=== PATIENT | female | born 1970 | race African-American/Black ===

== ENCOUNTER 2016-09-04 22:31 | Emergency (ER) | payer BC, OTHER ==
[~2016-09-04] VITALS: Ht 167.6 cm; Wt 65.3 kg
[~2016-09-04 22:31] MED LIST: BIRTH CONTROL PO; FEXO-104 PO; FLUR100T PO; GUAIFENESIN PO; HYOS0.1217 PO; LORA10TA2 PO; NAPROXEN PO; PANT40SU PO
--- NOTE | 2016-09-04 23:00 | ED General ---
General Chief Complaint: Cardiac/General Problems Stated Complaint: LT LEG PAIN,HEAD PAIN,ELEVATED BP Nursing Triage Note: Pt to ED after calling her insurance phone a nurse line. Pt has elevated BP and a headche. Pain in lower leg lateral calf region since 1800. Pt is on Naproxen for menstrual cramps. Nursing Sepsis Screen: No Definite Risk Source of Information: Patient, Family Exam Limitations: No Limitations History of Present Illness Time Seen by Provider: 22:37 Initial Comments Here with report of elevated blood pressure home with headache and pain in her left lower leg. Pain is been going on since about 6 p.m. tonight. She did take a pain pill which did not help. Denies chest pain or breathing problems. Has history of high blood pressure but takes only 5 mg lisinopril. Denies nausea or vomiting. Timing/Duration: 4-6 Hours Severity: Moderate Modifying Factors: worse with Medication Associated Systoms: No Chest Pain, No Cough, No Fever/Chills, HeadachesNo Nausea/Vomiting, No Shortness of Air, No Weakness Allergies and Home Medications Allergies Coded Allergies: Azithromycin (Unverified Allergy, 01/25/10) Methylprednisolone (Unverified Allergy, 01/25/10) Home Medications PO DAILY (Reported) PO PRN (Reported) 500 MG PO PRN (Reported) Fexofenadine Hcl 180 Mg Tablet 180 MG PO DAILY (Reported) Flurbiprofen 100 Mg Tablet 100 MG PO PRN (Reported) Hyoscyamine Sulfate 0.125 Mg/Tab Tab.rapdis 1 EACH PO BID (Reported) Loratadine 10 Mg Tablet 10 MG PO PRN (Reported) Pantoprazole Sodium 40 Mg Suspdr.pkt 40 MG PO DAILY (Reported) Constitutional: see HPINo chills, No fever EENTM: no symptoms reported Respiratory: no symptoms reported Cardiovascular: see HPI edema (left lower extremity mild) palpitations Gastrointestinal: no symptoms reported Genitourinary: no symptoms reported Musculoskeletal: see HPI muscle pain Skin: no symptoms reported Psychiatric/Neurological: See HPI Headache (global)Denies Pre-Existing Deficit All Other Systems Reviewed Negative Unless Noted: Yes Past Ruokhpt-Snfijv-Sjykgc Hx Patient Social History Alcohol Use: Denies Use Recreational Drug Use: No Smoking Status: Never a Smoker Recent Foreign Travel: No Contact w/Someone Who Travel: No Recent Infectious Disease Expo: No Recent Hopitalizations: No Physical Abuse Screen: No Sexual Abuse: No Immunizations Up To Date Date of Influenza Vaccine: May 25, 2017 Seasonal Allergies Seasonal Allergies: No Surgeries HX Surgeries: Yes (CYST FROM CHIN) Respiratory Hx Respiratory Disorders: No Cardiovascular Hx Cardiac Disorders: Yes Cardiac Disorders: Hypertension Neurological Hx Neurological Disorders: No Reproductive System : No Hx Reproductive Disorders: No Sexually Transmitted Disease: No Genitourinary Hx Genitourinary Disorders: No Gastrointestinal Hx Gastrointestinal Disorders: Yes Gastrointestinal Disorders: Gastroesophageal Reflux Musculoskeletal Hx Musculoskeletal Disorders: No Endocrine Hx Endocrine Disorders: No HEENT HX ENT Disorders: Yes (tmj) Cancer Hx Cancer: No Psychosocial Hx Psychiatric Problems: No Integumentary HX Skin/Integumentary Disorder: No Blood Transfusions Hx Blood Disorders: No Reviewed Nursing Assessment Reviewed/Agree w Nursing PMH: Yes Family Medical History Significant Family History: No Pertinent Family Hx Physical Exam Vital Signs Vital Sign - Last 12Hours 09/04/16 22:38 Temp 97.1 Pulse 77 Resp 18 B/P 176/134 Pulse Ox 100 O2 Delivery Room Air Capillary Refill : Less Than 3 Seconds General Appearance: No Apparent Distress WD/WN HEENT: PERRL/EOMI Pharynx Normal Neck: Non Tender Supple Respiratory: Lungs Clear Normal Breath Sounds Cardiovascular: Regular Rate, Rhythm No Murmur Gastrointestinal: Non Tender Soft Back: Normal Inspection No CVA Tenderness No Vertebral Tenderness Extremity: Normal Range of Motion Non Tender Pedal Edema (1+ edema/swelling to the left lower extremity versus right.) Neurologic/Psychiatric: Alert Oriented x3 No Motor/Sensory Deficits Skin: Normal Color Warm/Dry Progress/Results/Core Measures Results/Orders Lab Results Laboratory Tests Test 09/04/16 23:30 Range/Units Alanine Aminotransferase (ALT/SGPT) 16 0-55 U/L Albumin 3.9 3.2-4.5 G/DL Alkaline Phosphatase 65 40-136 U/L Anion Gap 9 5-14 MMOL/L Aspartate Amino Transf (AST/SGOT) 25 5-34 U/L BUN/Creatinine Ratio 16 Basophils # (Auto) 0.0 0.0-0.1 10^3/uL Basophils (%) (Auto) 0 0-10 % Blood Urea Nitrogen 13 7-18 MG/DL Calcium Level 8.5 8.5-10.1 MG/DL Carbon Dioxide Level 21 21-32 MMOL/L Chloride Level 110 H 98-107 MMOL/L Creatinine 0.83 0.60-1.30 MG/DL D-Dimer 0.57 H 0.00-0.49 UG/ML Eosinophils # (Auto) 0.1 0.0-0.3 10^3/uL Eosinophils (%) (Auto) 2 0-10 % Estimat Glomerular Filtration Rate > 60 Glucose Level 101 70-105 MG/DL Hematocrit 32 L 35-52 % Hemoglobin 9.9 L 11.5-16.0 G/DL Lymphocytes # (Auto) 1.3 1.0-4.0 X 10^3 Lymphocytes (%) (Auto) 50 H 12-44 % Magnesium Level 2.1 1.8-2.4 MG/DL Mean Corpuscular Hemoglobin 25 25-34 PG Mean Corpuscular Hemoglobin Concent 31 L 32-36 G/DL Mean Corpuscular Volume 79 L 80-99 FL Mean Platelet Volume 9.6 7.4-10.4 FL Monocytes # (Auto) 0.3 0.0-1.0 X 10^3 Monocytes (%) (Auto) 13 H 0-12 % Neutrophils # (Auto) 0.9 L 1.8-7.8 X 10^3 Neutrophils (%) (Auto) 35 L 42-75 % Platelet Count 227 130-400 10^3/uL Potassium Level 3.7 3.6-5.0 MMOL/L Red Blood Count 3.99 L 4.35-5.85 10^6/uL Red Cell Distribution Width 16.4 H 10.0-14.5 % Serum Test, Qualitative NEGATIVE NEGATIVE Sodium Level 140 135-145 MMOL/L Total Bilirubin 0.2 0.1-1.0 MG/DL Total Protein 7.7 6.4-8.2 G/DL Troponin I < 0.30 <0.30 NG/ML White Blood Count 2.6 L 4.3-11.0 10^3/uL My Orders Orders-RA FINCH MD Cbc With Automated Diff (09/04/16 22:46) Comprehensive Metabolic Panel (09/04/16 22:46) Fibrin Degradation Products (09/04/16 22:46) Magnesium (09/04/16 22:46) Troponin I (09/04/16 22:46) Chest Pa/Lat (2 View) (09/04/16 22:46) Saline Lock/Iv-Start (09/04/16 22:46) Ekg Tracing (09/04/16 22:46) Monitor-Rhythm Ecg Trace Only (09/04/16 22:46) Metoprolol Succinate (Xl) Tab (Toprol Xl (09/04/16 23:00) Us Venous Lower Ext Lt (09/05/16 00:04) Hcg,Qualitative Serum (09/05/16 00:15) Ketorolac Injection (Toradol Injection) (09/05/16 00:22) Ct Head Wo (09/05/16 00:40) Fentanyl Injection (Sublimaze Injection (09/05/16 01:34) Dexamethasone Pf Injection (Decadron Pf (09/05/16 01:34) Medications Given in ED Current Medications Medications Dose Ordered Sig/Abby Route Start Time Stop Time Status Last Admin Dose Admin Metoprolol Succinate 50 mg ONCE ONCE PO 09/04/16 23:00 09/04/16 23:03 DC 09/04/16 23:28 50 MG Vital Signs/I&O Vital Sign - Last 12Hours 09/04/16 09/05/16 09/05/16 22:38 00:26 01:40 Temp 97.1 97.1 97.1 Pulse 77 Resp 18 B/P 176/134 Pulse Ox 100 O2 Delivery Room Air Blood Pressure Mean: 148 Progress Note : Progress Note Seen and evaluated. IV, labs, EKG and chest x-ray ordered. Monitor patient. Metoprolol xl 50 mg by mouth given. Ultrasound left lower extremity ordered due to elevated d-dimer. Abnormal blood counts discussed with patient and family. CT head ordered due to persistent headache. Toradol 30 mg IV ordered. Monitor patient. 0200: Fentanyl 25 g IV and Decadron 10 mg IV for headache. Monitor patient. 0250: Pain resolved and patient feels much better. Blood pressure 142/92. No acute findings other than blood counts. Consideration of vitamin with iron discussed that she will talk with her primary care doctor in the morning. Discharged home with return precautions. Patient verbalize understanding instructions and agreement with plan. ECG Initial ECG Impression Date: Sep 04, 2016 Initial ECG Impression Time: 22:49 Initial ECG Rate: 68 Initial ECG Rhythm: Normal Sinus Initial ECG Intervals: Normal Comment Sinus rhythm with left axis deviation. No evidence of ST elevation CT. No previous available for comparison. Interpreted by me. Diagnostic Imaging Diagonstic Imaging: Xray Plain Films/CT/US/NM/MRI: chest Comments No acute findings Reviewed: Reviewed by Me Diagonstic Imaging: CT Plain Films/CT/US/NM/MRI: head Comments No acute intracranial hemorrhage, mass effect, midline shift, herniation or hydrocephalus. Visualized paranasal sinuses and mastoid air cells are clear. Reviewed: Reviewed [place] Study Diagonstic Imaging: Ultrasound Plain Films/CT/US/NM/MRI: leg Comments No evidence of DVT. Reviewed: Reviewed [place] Study Departure Impression Impression: Primary Impression: Hypertension Qualified Code: I10 - Essential (primary) hypertension Additional Impressions: Anemia Qualified Code: D64.9 - Anemia, unspecified Headache Qualified Code: R51 - Headache Disposition: 01 HOME, SELF-CARE Condition: Improved Departure-Patient Inst. Decision time for Depature: 02:56 Referrals: NO,LOCAL PHYSICIAN (PCP/Family) Primary Care Physician Patient Instructions: Anemia Caused by Low Iron, Adult (DC), Headache, Adult ( DC), High Blood Pressure in Adults Add. Discharge Instructions: All discharge instructions reviewed with patient and/or family. Voiced understanding. You need to call your doctor this morning and discuss lab results and low blood counts. Also discuss your blood pressure. You were given metoprolol XL 50 mg here which did help her blood pressure. It would be reasonable to double your lisinopril to 10 mg daily if blood pressure is not controlled. You can discussed this with your doctor as well. Return for worsening, fever, vomiting , weakness, breathing problems or other concerns as needed. RA FINCH MD Sep 04, 2016 23:00
[2016-09-04 23:41] LABS: BASOPHILS % (AUTO) 0 % (0-10); EOSINOPHILS # (AUTO) 0.1 10^3/uL (0.0-0.3); EOSINOPHILS % (AUTO) 2 % (0-10); LYMPHOCYTES # (AUTO) 1.3 X 10^3 (1.0-4.0); LYMPHOCYTES % (AUTO) 50 % (12-44); MEAN CORPUSCULAR HEMOGLOBIN 25 PG (25-34); MEAN CORPUSCULAR HGB CONC 31 G/DL (32-36); MEAN CORPUSCULAR VOLUME 79 FL (80-99); MEAN PLATELET VOLUME 9.6 FL (7.4-10.4); MONOCYTES # (AUTO) 0.3 X 10^3 (0.0-1.0); MONOCYTES % (AUTO) 13 % (0-12); NEUTROPHILS # (AUTO) 0.9 X 10^3 (1.8-7.8); NEUTROPHILS % (AUTO) 35 % (42-75); PLATELET COUNT 227 10^3/uL (130-400); RED BLOOD COUNT 3.99 10^6/uL (4.35-5.85); RED CELL DISTRIBUTION WIDTH 16.4 % (10.0-14.5); WHITE BLOOD COUNT 2.6 10^3/uL (4.3-11.0)
[2016-09-04 23:59] LABS: ALANINE AMINOTRANSFERASE 16 U/L (0-55); ALBUMIN 3.9 G/DL (3.2-4.5); ANION GAP 9 MMOL/L (5-14); ASPARTATE AMINO TRANSFERASE 25 U/L (5-34); BILIRUBIN,TOTAL 0.2 MG/DL (0.1-1.0); BLOOD UREA NITROGEN 13 MG/DL (7-18); BUN/CREATININE RATIO 16; CALCIUM 8.5 MG/DL (8.5-10.1); CARBON DIOXIDE 21 MMOL/L (21-32); CHLORIDE 110 MMOL/L (98-107); CREATININE SERUM 0.83 MG/DL (0.60-1.30); GFR ESTIMATED > 60; GLUCOSE 101 MG/DL (70-105); MAGNESIUM 2.1 MG/DL (1.8-2.4); POTASSIUM 3.7 MMOL/L (3.6-5.0); SODIUM 140 MMOL/L (135-145); TOTAL PROTEIN 7.7 G/DL (6.4-8.2)
[2016-09-05 00:05] LABS: TROPONIN I < 0.30 NG/ML (<0.30)
[2016-09-05] MEDS ORDERED: KETOROLAC 30 MG/ML VIAL IVP STA (00:22)
[2016-09-05] MEDS ORDERED: fentaNYL INJECTION 100 MCG/2 ML AMP IVP STA (01:34)
[2016-09-05] MEDS ORDERED: DEXAMETHASONE PF 10 MG/ML (DECADRON) VIAL IV STA (01:34)
[2016-09-05 03:12] VITALS: BP 142/92
[2016-09-05] MEDS ORDERED: FLUT9.9S NS (03:28)
[2016-09-05] MEDS ORDERED: LISI-556 PO (03:28)
--- NOTE | 2016-09-05 06:37 | Diagnostic Imaging Report ---
PROCEDURE: US left lower extremity venous. TECHNIQUE: Multiple real-time grayscale images were obtained over the left lower extremity in various projections. Additional duplex Doppler and color Doppler images were also obtained. INDICATION: Left leg pain. EXAMINATION: Grayscale and color Doppler evaluation of the deep veins of the left lower extremity were performed with waveform analysis. FINDINGS: Continuous venous flow is present. No intraluminal filling defect is identified. There is normal compressibility and response to augmentation. No abnormal perivascular fluid collection is identified. IMPRESSION: No ultrasound evidence of left lower extremity deep venous thrombosis. Dictated by: Dictated on workstation # [id number]
--- NOTE | 2016-09-05 06:38 | Diagnostic Imaging Report ---
PROCEDURE: CT head without contrast. TECHNIQUE: Multiple contiguous axial images were obtained through the brain without the use of intravenous contrast. INDICATION: Headache. CT HEAD: Multiple contiguous axial CT images of the head were obtained. FINDINGS: Ventricles and sulci are within normal limits for size. There is no intracranial hemorrhage identified. There is no abnormal mass effect or shift of midline structures. IMPRESSION: Unremarkable CT of the head. Dictated by: Dictated on workstation # [id number]
--- NOTE | 2016-09-05 06:39 | Diagnostic Imaging Report ---
INDICATION: Headache with leg pain. PA and lateral views of the chest are obtained. COMPARISON: No previous study is available for comparison at this time. FINDINGS: Heart size and pulmonary vasculature are within normal limits, and the lungs are clear, bilaterally. IMPRESSION: Unremarkable chest. Dictated by: Dictated on workstation # [id number]
== END 2016-09-05 03:12 | disposition home or self-care (01) ==
LOC: EDUNIT# 22:31 → ER 22:34
DX: I10 Essential (primary) hypertension (principal); D64.9 Anemia, unspecified; R51 Headache
CPT/HCPCS: 36415; 70450; 71020; 80053; 83735; 84484; 84703; 85025; 85379; 93005; 96374; 96375

== ENCOUNTER 2018-09-28 08:34 | Outpatient (CLI) | payer BC ==
[~2018-09-28] VITALS: Ht 167.6 cm; Wt 72.4 kg
[~2018-09-28 08:34] MED LIST changes: +FLUT9.9S NS; +LISI-556 PO
[2018-09-28] MEDS ORDERED: NAPR-1070 PO (08:53)
[2018-09-28] MEDS ORDERED: HYOS-20 PO (08:53)
[2018-09-28] MEDS ORDERED: LIFI1DRO OP (08:53)
[2018-09-28] MEDS ORDERED: LORA10TA7 PO (08:53)
[2018-09-28] MEDS ORDERED: PANT40TA3 PO (08:53)
[2018-09-28] MEDS ORDERED: FLUR100T2 PO (08:53)
[2018-09-28] MEDS ORDERED: ESTR1TAB24 PO (08:59)
[2018-09-28] MEDS ORDERED: NF-SKEL800 PO (08:59)
[2018-09-28] MEDS ORDERED: MEDR2.5T6 PO (08:59)
[2018-09-28] MEDS ORDERED: LISI10TA2 PO (08:59)
[2018-09-28 09:02] VITALS: BP 143/99
--- NOTE | 2018-09-28 09:49 | Diagnostic Imaging Report ---
INDICATION: PRE-OP. Menorrhagia. COMPARISON: 09/04/2016 FINDINGS: Frontal and lateral views of the chest demonstrate normal heart size and pulmonary vascularity. The lungs are clear. There are no signs of infiltrate, pleural effusions or pneumothoraces. The visualized osseous structures show no acute abnormalities. IMPRESSION: 1. No acute process. No signs of infiltrates, effusions or pneumothoraces. Dictated by: Dictated on workstation # [id number]
== END 2018-09-28 10:59 | disposition home or self-care (01) ==
LOC: PREOP 08:34
PROVIDERS: ATTEND Obstetrics & Gynecology
DX: Z01.818 Encounter for other preprocedural examination (principal)
CPT/HCPCS: 71046; 86850; 86900; 86901; 87081; 93005

== ENCOUNTER 2018-10-05 10:11 | Day surgery (SDC) | payer BC ==
[~2018-10-05] VITALS: Ht 167.6 cm; Wt 72.4 kg
[2018-10-05 10:11] VITALS: BP 147/92
[~2018-10-05 10:11] MED LIST changes: +ESTR1TAB24 PO; +FLUR100T2 PO; +HYOS-20 PO; +LIFI1DRO OP; +LISI10TA2 PO; +LORA10TA7 PO; +MEDR2.5T6 PO; +NAPR-1070 PO; +NF-SKEL800 PO; +PANT40TA3 PO
[2018-10-05] MEDS ORDERED: CLINDAMYCIN 900 MG/50 ML IVPB 50 ML IV ONE (10:15)
[2018-10-05] MEDS ORDERED: LEVOFLOXACIN 500 MG/100 ML IV 100 ML IV ONE (10:15)
[2018-10-05] MEDS ORDERED: LIDOCAINE/EPI 2% 1:100,00 (XYLOCAINE) 20 ML VIAL ONE (10:33)
[2018-10-05] MEDS ORDERED: ESTRADIOL VAGINAL CREAM 42.5 GM (ESTRACE) VG ONE (10:34)
[2018-10-05] MEDS ORDERED: CATHETER FLUSH 10 ML SYR IV PRN (11:00)
[2018-10-05] MEDS: LACTATED RINGERS 1,000 ML IV PRN ×3 (11:15→13:45)
[2018-10-05] MEDS ORDERED: fentaNYL INJECTION 100 MCG/2 ML AMP ONE (11:44)
[2018-10-05] MEDS ORDERED: MIDAZOLAM 2 MG/2 ML (VERSED) VIAL ONE (11:44)
[2018-10-05] MEDS ORDERED: ROCURONIUM 10 MG/ML 5 ML SYRINGE IV ONE (11:44)
[2018-10-05] MEDS ORDERED: LIDOCAINE PF 2% 5 ML (XYLOCAINE) VIAL ONE (11:44)
[2018-10-05] MEDS ORDERED: DEXAMETHASONE 10 MG/ML (DECADRON) 1 ML VIAL ONE (11:44)
[2018-10-05] MEDS ORDERED: ONDANSETRON 4 MG/2 ML (SDV) Z0FRAN ONE (11:44)
[2018-10-05] MEDS ORDERED: SEVOFLURANE (ULTANE) 15 ML INHAL SOLN ONE ×6 (11:44→12:49)
[2018-10-05] MEDS ORDERED: proPOfol 200 MG/20 ML (DIPRIVAN) VIAL IV ONE (11:44)
--- NOTE | 2018-10-05 13:44 | History & Physical-Surgical ---
HPO-Surgical History of Present Illness Chief Complaint: Heavy, painful vaginal bleeding. Has know uteine fibroids Diagnosis/Surgical Indication: MENORRHAGIA Procedure: TVH WITH BSO Date of Surgery: Oct 05, 2018 Weight (Pounds): 159 Weight (Ounces): 9.0 Height (Feet): 5 Height (Inches): 6.00 Allergies and Home Medications Allergies Coded Allergies: amoxicillin (Verified Allergy, Mild, LOOSE STOOLS, 09/28/18) azithromycin (Unverified Allergy, Mild, LOOSE STOOLS, 09/28/18) clavulanic acid (Verified Allergy, Mild, LOOSE STOOLS, 09/28/18) methylprednisolone (Unverified Allergy, Mild, RASH, 09/28/18) Home Medications Estradiol 1 Mg Tablet, 1 MG PO DAILY, (Reported) Flurbiprofen 100 Mg Tablet, 100 MG PO PRN, (Reported) Fluticasone Propionate 9.9 Ml [place].susp, 9.9 ML NS DAILY PRN, (Reported) Hyoscyamine Sulfate 0.125 Mg Tablet, 0.125 MG PO BID, (Reported) Lifitegrast 1 Each Droperette, 1 EACH OP BID PRN for DRY EYES, (Reported) Lisinopril 10 Mg Tablet, 10 MG PO DAILY, (Reported) Loratadine 10 Mg Tablet, 10 MG PO DAILY, (Reported) Medroxyprogesterone Acetate 2.5 Mg Tablet, 2.5 MG PO DAILY, (Reported) Metaxalone 800 Mg Tablet, 800 MG PO PRN, (Reported) Naproxen Sodium 550 Mg Tablet, 550 MG PO BID PRN for CRAMPS, (Reported) Pantoprazole Sodium 40 Mg Tablet.dr, 40 MG PO DAILY, (Reported) Patient Home Medication List Home Medication List Reviewed: Yes Past Kytyksh-Julwuf-Fvmbvu Hx Patient Social History Marrital Status: ( to Jasmyne) Number of Children: 1 Number of living children: 1 Employed/Student: employed Alcohol Use: Denies Use Recreational Drug Use: No Smoking Status: Never a Smoker 2nd Hand Smoke Exposure: No Recent Foreign Travel: No Contact w/other who traveled: No Recent Hopitalizations: No Recent Infectious Disease Expo: No Immunizations Up To Date Date of Influenza Vaccine: Jun 01, 2018 Seasonal Allergies Seasonal Allergies: Yes Surgeries Yes (CYST FROM CHIN, BONE MARROW ASPIRATION) Respiratory No Cardiovascular Yes Hypertension Neurological No Reproductive System Hx Reproductive Disorders: No Sexually Transmitted Disease: No HIV/AIDS: No Female Reproductive Disorders: Menstrual Problems, 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 Genitourinary No Gastrointestinal Yes Gastroesophageal Reflux, Chronic Constipation, Chronic Diarrhea, Irritable Bowel Musculoskeletal No Endocrine History of Endocrine Disorders: No HEENT History of HEENT Disorders: Yes (GLASSES) Loss of Vision: Bilateral Hearing Impairment: Denies Cancer No Psychosocial History of Psychiatric Problem: No Integumentary History of Skin or Integumenta: No Blood Transfusions History of Blood Disorders: Yes (HX ANEMIA) Adverse Reaction to a Blood Tr: No (N/A) Family Medical History Significant Family History: No Pertinent Family Hx Exam Vital Signs Vital Signs 10/05/18 10:11 Temp 98.6 Pulse 83 Resp 16 B/P (MAP) 147/92 (110) Pulse Ox 100 O2 Delivery Room Air Capillary Refill : Labs Laboratory Tests Test 10/05/18 10:20 Range/Units Urine Test NEGATIVE NEGATIVE General Appearance: Alert, Oriented X3, Cooperative, No Acute Distress HEENT: PERRLA, EOMI Respiratory: Clear to Auscultation, Normal Air Movement Cardiovascular: Regular Rate, No Murmurs Abdominal: Normal Bowel Sounds, No Tenderness Extremities: No Clubbing, No Cyanosis Skin: No Rashes Neuro: Normal Gait Psych/Mental Status: Mental Status NL Assessment/Plan Assessment and Plan Assessment: Menometrorrhagia 2. Dysmenorrhea 3. Uterine Fibroids Plan: Scheduled for a Total Vaginal Hysterectomy with Bilateral Salpingo- oophorectomy for today. Admission Diagnosis Admission Status: Observation REGGIE GUERRERO DO Oct 05, 2018 13:44
[2018-10-05] MEDS ORDERED: GLYCOPYRROLATE 0.2 MG/ML (ROBINUL) 2 ML VIAL ONE (13:49)
[2018-10-05] MEDS ORDERED: NEOSTIGMINE 1 MG/ML 5 ML SYRINGE ONE (13:49)
[2018-10-05] MEDS ORDERED: morphine INJ 10 MG/ML 1ML (SYR OR VIAL) ONE (13:53)
[2018-10-05] MEDS ORDERED: HYDROmorphone 2 MG/ML VIAL (DILAUDID) IV ONE (14:00)
[2018-10-05] MEDS ORDERED: ONDANSETRON 4 MG/2 ML (SDV) Z0FRAN IVP PRN (14:00)
[2018-10-05] MEDS ORDERED: morphine INJ 10 MG/ML 1ML (SYR OR VIAL) IVP ONE (14:00)
--- NOTE | 2018-10-05 14:01 | Operative Report ---
Operative Report Date of Procedure/Surgery Oct 05, 2018 Surgeon (s) REGGIE GUERRERO DO Washerette Machine Operator (s): None Post-Operative Diagnosis Menometrorrhagia Dysmenorrhea Uterine Fibroids Procedure Performed Total Vaginal Hysterectomy with Bilateral Salpingo-oophorectomy Description of Procedure Anesthesia Type: General Estimated blood loss (mL): 250 Specimen(s) collected/removed Uterus, Fallopian Tubes, Ovaries Packing: Vaginal packing with Estrogen Vaginal Cream applied Description of the Procedure After reviewing the procedure, risks and benefits, Informed Consent was obtained. Ms. Lagos was taken to the Operating Room with IV fluids running. Once in the OR, general anesthesia was administered without difficulty. She was placed in the dorsal lithotomy position, prepped and draped in the normal sterile fashion. A Carrera catheter was inserted without difficulty, the bladder was drained of all urinary contents prior to starting the procedure. A weighted speculum was introduced in the vaginal vault along with a Lor retractor. The anterior lip of the cervix was grasped with a single toothed tenaculum, then injected with approximately 20 ml of local anesthesia with Epinephrine. An incision was made around the the cervix and the anterior vesicovaginal tissue was dissected off. The vescioperitoneum was entered by blunt dissection, the Lor retractor was reintroduced at that time. The uterosacral ligament was clamped on both sides, cut, then suture ligated with 0- Vicryl--the needles were allowed to remain as a means to close the vaginal cuff at the end of the procedure. The ligaments attached to the uterus were serial cut, clamped and suture ligated with 0-Vicryl. Secondary to the size of the uterus (fibroids), several fibroids had to be shelled out of the pseudo-sac prior to delivery of the uterus. Once the uterus was delivered, the infundibulopelvic ligament was clamped and cut on both sides, with delivery of both fallopian tubes and ovaries. The ligament was suture ligated with 0-Vicryl , followed by a a free-tie of 0-Vicryl. The peritoneum was closed with 3-0 Vicryl in a purse string fashion. The vaginal cuff was closed with a 0-Vicryl. Hemostasis was noted throughout. The vaginal vault was packed with a vaginal packing moistened with Estrogen Vaginal Cream. Sponge, instruments, and needle counts were correct x 3. Ms. Lagos was taken to the recovery room in good and stable condition. Orders are to follow. Findings of the Procedure Enlarged uterus with two very large fibroids (both approximately 8 cm in diameter), and several small fibroids. Allergies and Home Medications Allergies Coded Allergies: amoxicillin (Verified Allergy, Mild, LOOSE STOOLS, 09/28/18) azithromycin (Unverified Allergy, Mild, LOOSE STOOLS, 09/28/18) clavulanic acid (Verified Allergy, Mild, LOOSE STOOLS, 09/28/18) methylprednisolone (Unverified Allergy, Mild, RASH, 09/28/18) Home Medications Estradiol 1 Mg Tablet, 1 MG PO DAILY, (Reported) Flurbiprofen 100 Mg Tablet, 100 MG PO PRN, (Reported) Fluticasone Propionate 9.9 Ml [place].susp, 9.9 ML NS DAILY PRN, (Reported) Hyoscyamine Sulfate 0.125 Mg Tablet, 0.125 MG PO BID, (Reported) Lifitegrast 1 Each [place], 1 EACH OP BID PRN for DRY EYES, (Reported) Lisinopril 10 Mg Tablet, 10 MG PO DAILY, (Reported) Loratadine 10 Mg Tablet, 10 MG PO DAILY, (Reported) Medroxyprogesterone Acetate 2.5 Mg Tablet, 2.5 MG PO DAILY, (Reported) Metaxalone 800 Mg Tablet, 800 MG PO PRN, (Reported) Naproxen Sodium 550 Mg Tablet, 550 MG PO BID PRN for CRAMPS, (Reported) Pantoprazole Sodium 40 Mg Tablet.dr, 40 MG PO DAILY, (Reported) Patient Home Medication List Home Medication List Reviewed: Yes REGGIE GUERRERO DO Oct 05, 2018 14:01
[2018-10-05] MEDS ORDERED: NS IV 1000 ML 1,000 ML IV SCH ×2 (14:02→14:06)
--- NOTE | 2018-10-05 14:04 | Anesthesia-General Post-Op ---
General Patient Condition Mental Status/LOC: Same as Preop Cardiovascular: Satisfactory Nausea/Vomiting: Absent Respiratory: Satisfactory Pain: Controlled Complications: Absent Post Op Complications Complications None Follow Up Care/Instructions Patient Instructions None needed. Anesthesia/Patient Condition Patient Condition Patient is doing well, no complaints, stable vital signs, no apparent adverse anesthesia problems. No complications reported per nursing. LISA LUA CRNA Oct 05, 2018 14:04
[2018-10-05] MEDS ORDERED: D5 LR IV SOLUTION 1,000 ML IV SCH (14:06)
[2018-10-05] MEDS ORDERED: HYDROmorphone 2 MG/ML VIAL (DILAUDID) ONE (14:14)
[2018-10-05] MEDS ORDERED: NALOXONE 0.4 MG/ML 1 ML (NARCAN) VIAL IV PRN ×3 (14:15)
[2018-10-05] MEDS ORDERED: fentaNYL INJECTION 1,000 MCG in NS (IVPB) 80 ML IV SCH (14:15)
[2018-10-05] MEDS ORDERED: METOCLOPRAMIDE INJ 10 MG/2 ML (REGLAN) IV PRN ×3 (14:15)
[2018-10-05] MEDS ORDERED: morphine INJ 10 MG/ML 1ML (SYR OR VIAL) IV PRN (14:15)
[2018-10-05] MEDS ORDERED: BENZOCAINE/MENTHOL (DERMOPLAST) 56 ML CAN TP PRN (14:15)
[2018-10-05] MEDS ORDERED: ONDANSETRON 4 MG/2 ML (SDV) Z0FRAN IV PRN ×4 (14:15)
[2018-10-05] MEDS ORDERED: diphenhydrAMINE 50 MG/ML INJ (BENADRYL) IV PRN ×3 (14:15)
--- NOTE | 2018-10-05 14:50 | NUR ---
pt to women services room 306 via bed from [facility]. pt drowsy and resting on LT side. skin color normal for race. resp unlabored. HRRR abd soft with positive bowel sounds. v pack in place. scant drainage noted on pad. fuentes cath to bedside drainage. pt oriented to person,place,time, and situation. reports pain level at 7 on 1/10 scale. moves all extremities on command. bed rails up times 4. IV infusing LR per gravity.
[2018-10-05 15:00] VITALS: BP 113/57
[2018-10-05] MEDS ORDERED: NS IV 1000 ML 1,000 ML ONE (15:01)
--- NOTE | 2018-10-05 15:10 | NUR ---
pain medication ordered from pharmacy,
--- NOTE | 2018-10-05 15:30 | NUR ---
IV converted to pump tubing and NS at 125ml/hr per order dr irwin.
[2018-10-05] MEDS ORDERED: morphine INJ 4 MG/ML 1 ML (VIAL/SYRINGE) IV PRN (16:00)
--- NOTE | 2018-10-05 16:00 | NUR ---
pt drowsy and continues to report pain level at 7 on 1/10 scale. awaiting pain medication from pharmacy
--- NOTE | 2018-10-05 16:20 | NUR ---
fentanyl 20 mcg loading dose per TIER LIFT OPERATOR pump to existing IV site. reviewed usage of TIER LIFT OPERATOR with pt and family. continues to rate pain level at 7.
--- NOTE | 2018-10-05 16:45 | NUR ---
pt reports decrease in pain level to 6 on 1/10 scale. frequently sleepy. s.o reports she is "more comfortable now"
--- NOTE | 2018-10-05 16:45 | NUR ---
dr irwin called and status reviewed. continuous 10 mcg rate per BLADE ALIGNER with 10mcg q10min PRN. 200 mcg 4 hour limit
[2018-10-05] MEDS ORDERED: LORazepam INJ 2 MG/ML (ATIVAN) VIAL IVP NR (17:00)
--- NOTE | 2018-10-05 17:45 | NUR ---
dr irwin here to see patient. requesting citracil instead of milk of mag. new order received.
--- NOTE | 2018-10-05 18:00 | NUR ---
pt reports decreasing pain level and using ASPHALT BLENDER. pt resting on RT side. IV infusing without issues. family at bedside. SCD's on bilaterally. family remains at bedside. Vag packing remains in place.
--- NOTE | 2018-10-05 19:15 | NUR ---
Rn to room, assisted with position change to left side. Carrera cath to DD. Calf scd's on emily. Clear liquid tray at bedside, warm blanket given per request. Family remains at bedside.
[2018-10-05 20:25] VITALS: BP 137/76
--- NOTE | 2018-10-05 20:25 | NUR ---
VSS and assisted with position change to right side per pt request. Pericare given, vpad clean and dry.
[2018-10-05] MEDS ORDERED: ZOLPIDEM 5 MG (AMBIEN) TAB PO SCH (21:00)
[2018-10-05] MEDS: METOCLOPRAMIDE INJ 10 MG/2 ML (REGLAN) IV SCH (22:15)
[2018-10-05] MEDS: NS IV 1000 ML 1,000 ML IV SCH ×2 (22:16→23:50)
[2018-10-06] VITALS: BP 131/61
[2018-10-06 03:41] VITALS: BP 110/62
[2018-10-06] MEDS: METOCLOPRAMIDE INJ 10 MG/2 ML (REGLAN) IV SCH (03:41)
[2018-10-06] MEDS ORDERED: METHYLCELLULOSE (CITRUCEL) 500 MG CAPLET PO NR (05:00)
[2018-10-06] MEDS ORDERED: MILK OF MAGNESIA 400 MG/5 ML 30 ML UDC PO NR (05:00)
[2018-10-06] MEDS ORDERED: BISACODYL 10 MG SUPP (DULCOLAX) PR NR (05:00)
--- NOTE | 2018-10-06 05:00 | NUR ---
Pt refusing suppository at this time, will offer again before change of shift. pt desires to take 500mg of the citrucel tab at this time.
--- NOTE | 2018-10-06 05:15 | NUR ---
vag packing dc'd, fuentes dc'd, pericare given, clean vpad in place.
--- NOTE | 2018-10-06 05:20 | NUR ---
Fent typing element machine operator pump dc'd. IV SL. Pt eating jello at this time. S.O. at bedside.
[2018-10-06] MEDS: IBUPROFEN 800 MG (MOTRIN) TAB PO SCH ×2 (05:28→11:41)
[2018-10-06] MEDS: NS IV 1000 ML 1,000 ML IV SCH (05:51)
[2018-10-06] MEDS ORDERED: IBUP-1780 PO (06:36)
[2018-10-06] MEDS ORDERED: DOCU100C37 PO (06:36)
[2018-10-06] MEDS ORDERED: OXYC1TAB87 PO (06:36)
--- NOTE | 2018-10-06 06:43 | Discharge Inst-Women's Service ---
Discharge Inst-Women's Serv Depart Medication/Instructions New, Converted or Re-Newed RX: RX Given to Pt/Family Instructions Pelvic rest, no heavy lifting, no strenuous activities, call with problems or questions, return to hospital with fever, bleeding or uncontrolled pain Final Diagnosis Menometrorrhagia Dysmenorrhea Uterine Fibroids Consults/Follow Up Additional Follow Up: No Activity Driving Instructions: No Driving for 1 Week NO SMOKING: NO SMOKING Nothing Inside Vagina: No Douching, No [place], No Tampons Diet Discharge Diet: Regular Diet Return to The Hospital For: Uncontrolled pain Fever Bleeding greater than a pad an hour Symptoms to Report to : Bleeding Excessive, Pain Increased, Fever Over 101 Degrees F, Vaginal Bleeding Increase, Vaginal Discharge Foul Skin/Wound Care Bathing Instructions: Tub (Tub soaks 2-3 times daily) REGGIE GUERRERO DO Oct 06, 2018 06:43
[2018-10-06] MEDS ORDERED: METHYLCELLULOSE (CITRUCEL) 500 MG CAPLET PO PRN (06:45)
--- NOTE | 2018-10-06 06:51 | Discharge Summary ---
Diagnosis/Chief Complaint Date of Admission 10/05/2018 Date of Discharge 10/06/2018 Discharge Date: Oct 06, 2018 Discharge Time: 15:00 Admission Diagnosis Admission Diagnosis Menometrorrhagia Dysmenorrhea Uterine Fibroids Discharge Diagnosis Menometrorrhagia Dysmenorrhea Uterine Fibroids Reason Hospital Visit Scheduled surgery, Total Vaginal Hysterectomy with Bilateral Salpingo- oophorectomy Discharge Summary Hospital Course Was the Problem List Reviewed?: Yes Hospital Course Ms. Lagos was admitted for scheduled surgery, Total Vaginal Hysterectomy with Bilateral Salpingo-oophorectomy. The surgery was performed without complications. 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 Her Day of Surgery course was unremarkable. Postoperative Day #1 found Ms. Lagos ambulatory, using oral medications to control her pain, voiding freely, moving her bowel, tolerating a Regular Diet, and afebrile. We will discharge her to home with instructions, prescriptions and a follow up appointment. Labs Laboratory Tests 10/05/18 10:20: CBC Pending Labs CBC Procedures None. Discharge Physical Examination Allergies: Coded Allergies: amoxicillin (Verified Allergy, Mild, LOOSE STOOLS, 09/28/18) azithromycin (Unverified Allergy, Mild, LOOSE STOOLS, 09/28/18) clavulanic acid (Verified Allergy, Mild, LOOSE STOOLS, 09/28/18) methylprednisolone (Unverified Allergy, Mild, RASH, 09/28/18) Vitals & I&Os Vital Signs Date Time Temp Pulse Resp B/P (MAP) Pulse Ox O2 Delivery O2 Flow Rate FiO2 10/06/18 05:20 18 10/06/18 03:41 99.3 85 110/62 (78) 96 Room Air General Appearance: Alert, Oriented X3, Cooperative, No Acute Distress HEENT: PERRLA, EOMI Respiratory: Clear to Auscultation, Normal Air Movement Cardiovascular: Regular Rate, No Murmurs Abdominal: Normal Bowel Sounds, No Tenderness Extremities: No Clubbing, No Cyanosis, No Edema Skin: No Rashes Neuro: Normal Gait, Normal Speech, Normal Tone, Reflexes 2+ Psych/Mental Status: Mental Status NL Discharge Home Medications Reviewed and agree with Discharge Medication list on patient's Discharge Instruction sheet Instructions to Patient/Family Please see electronic discharge instructions given to patient. REGGIE GUERRERO DO Oct 06, 2018 06:51
--- NOTE | 2018-10-06 07:00 | NUR ---
report from francisco javier musa RN
--- NOTE | 2018-10-06 07:27 | Anesthesia-General Post-Op ---
General Patient Condition Mental Status/LOC: Same as Preop Cardiovascular: Satisfactory Nausea/Vomiting: Absent Respiratory: Satisfactory Pain: Controlled Complications: Absent Post Op Complications Complications None Follow Up Care/Instructions Patient Instructions None needed. Anesthesia/Patient Condition Patient Condition Patient is doing well, no complaints, stable vital signs, no apparent adverse anesthesia problems. No complications reported per nursing. LONDON STALEY CRNA Oct 06, 2018 07:27
[2018-10-06 07:52] LABS: BASOPHILS % (AUTO) 0 % (0-10); EOSINOPHILS % (AUTO) 0 % (0-10); HEMATOCRIT 32 % (35-52); HEMOGLOBIN 10.2 G/DL (11.5-16.0); LYMPHOCYTES # (AUTO) 1.3 X 10^3 (1.0-4.0); LYMPHOCYTES % (AUTO) 11 % (12-44); MEAN CORPUSCULAR HEMOGLOBIN 27 PG (25-34); MEAN CORPUSCULAR HGB CONC 32 G/DL (32-36); MEAN CORPUSCULAR VOLUME 84 FL (80-99); MEAN PLATELET VOLUME 9.5 FL (7.4-10.4); MONOCYTES # (AUTO) 0.9 X 10^3 (0.0-1.0); MONOCYTES % (AUTO) 8 % (0-12); NEUTROPHILS # (AUTO) 9.2 X 10^3 (1.8-7.8); NEUTROPHILS % (AUTO) 81 % (42-75); PLATELET COUNT 223 10^3/uL (130-400); RED CELL DISTRIBUTION WIDTH 13.7 % (10.0-14.5); WHITE BLOOD COUNT 11.3 10^3/uL (4.3-11.0)
[2018-10-06 08:30] VITALS: BP 105/67
--- NOTE | 2018-10-06 08:30 | NUR ---
shift assessment completed. vss skin color pink tones, normal for race. resp unlabored with breath sounds CTA. HRRR. abd soft with positive bowel sounds. pt had fuentes cath removed but has not voided. pt up to bathroom and showered. reports no abdominal pain but report muscle soreness. saline lock removed. and pt returned to bed. reviewed pain medications as well as bowel stimulants as ordered by physician.
[2018-10-06] MEDS: oxyCODONE/APAP 5/325MG (PERCOCET 5) TABLET PO SCH ×2 (08:41→14:24)
[2018-10-06] MEDS ORDERED: SENNA W/DOCUSATE (SENOKOT S) TABLET PO SCH ×3 (09:00)
[2018-10-06] MEDS ORDERED: DOCUSATE SODIUM 100 MG (COLACE) CAP PO SCH (09:00)
--- NOTE | 2018-10-06 09:00 | NUR ---
pt up ambulating in [facility] with assistance of [facility] nursing students. pt denies changes in pain level as well dizzyness
--- NOTE | 2018-10-06 09:15 | NUR ---
pt resting in room with family member.
--- NOTE | 2018-10-06 10:30 | NUR ---
pt up in [facility] and reports no bm at this time
--- NOTE | 2018-10-06 10:34 | NUR ---
ducolax suppository per order. pt denies passing flatus
--- NOTE | 2018-10-06 10:46 | NUR ---
citrucel 100mg p.o per order for no bowel movement. pt up in [place] times 3 this morning ambulating without difficulty. 400 ml urine output after ambulating
--- NOTE | 2018-10-06 11:41 | NUR ---
pt denies bowel movement. resting in bed. voiding without issues. cl liquid diet consumed without emesis
[2018-10-06 12:30] VITALS: BP 99/58
--- NOTE | 2018-10-06 12:33 | NUR ---
resting in bed. denies flatus or bowel movement. reports pain level 2-3 on 1/10 scale. taking clear liquids
[2018-10-06] MEDS ORDERED: MAGNESIUM CITRATE 300 ML BTL PO NR (13:45)
--- NOTE | 2018-10-06 15:30 | NUR ---
pt reports passing stool. wanting to discharge to home
--- NOTE | 2018-10-06 16:00 | NUR ---
home care instructions reviewed with pt and her . follow up appointment made for friday with dr irwin at 1330 hours. pt acknowledges understanding of instructions verbally and with her signature
--- NOTE | 2018-10-06 16:30 | NUR ---
pt discharged to family vehicle accompanied by this RN.
== END 2018-10-06 16:30 | disposition home or self-care (01) ==
LOC: SDC 10:11 → EDSTATUS 12:00 → WS 14:50 → SDC 10-06 16:30
PROVIDERS: ATTEND Obstetrics & Gynecology
DX: N92.1 Excessive and frequent menstruation with irregular cycle (principal); N94.6 Dysmenorrhea, unspecified; D25.1 Intramural leiomyoma of uterus; N83.8 Other noninflammatory disorders of ovary, fallopian tube and broad ligament; N83.202 Unspecified ovarian cyst, left side; I10 Essential (primary) hypertension; K21.9 Gastro-esophageal reflux disease without esophagitis; Z79.899 Other long term (current) drug therapy
CPT/HCPCS: 36415; 84703; 85025; 86850; 86900; 86901; 94664

== ENCOUNTER → 2019-04-09 | Outpatient (CLI) | payer BC, OTHER ==
[~2019-04-09] MED LIST changes: +DOCU100C37 PO; +IBUP-1780 PO; +OXYC1TAB87 PO
--- NOTE | 2019-04-09 17:32 | Diagnostic Imaging Report ---
EXAMINATION: Lumbar spine at 10:04 a.m. INDICATION: Back pain. AP, lateral, and spot lateral views were obtained. There are no prior studies available for comparison. FINDINGS: The lateral view shows the vertebral body heights and alignment to be generally within normal limits. The intervertebral spaces are fairly well maintained. S1 does appear to be a transitional vertebra. There is no fracture or acute bony abnormality evident. There is no paraspinal mass visualized. There is mild symmetrical sclerosis of the sacroiliac joints. IMPRESSION: 1. There is no evidence for an acute bony abnormality. 2. If there is clinical concern regarding spinal stenosis or nerve root encroachment, then MRI would be recommended for further study. Dictated by: Dictated on workstation # [id number]
--- NOTE | 2019-04-09 17:34 | Diagnostic Imaging Report ---
EXAMINATION: Thoracic spine at 10:05 a.m. INDICATION: Back pain. FINDINGS: AP and lateral views were obtained. The uppermost thoracic spine was not well visualized on the lateral view but appears normal on the AP view. If further study is desired, then a swimmer's view would be recommended. There is slight curvature of the upper thoracic spine, convex to the right. The vertebral body heights and alignment are otherwise within normal limits, and the intervertebral spaces are fairly well maintained. There is no fracture or acute bony abnormality noted. There is no sign of a paraspinal mass. IMPRESSION: 1. There is slight curvature of the upper thoracic spine, convex to the right. There is no acute bony abnormality noted. 2. If further study is desired of the upper thoracic spine, then a swimmer's view would be recommended. Dictated by: Dictated on workstation # [id number]
== END ==
LOC: RAD 09:41
PROVIDERS: ATTEND Pediatrics
DX: G89.29 Other chronic pain (principal); M54.42 Lumbago with sciatica, left side; M43.8X4 Other specified deforming dorsopathies, thoracic region
CPT/HCPCS: 72070; 72100

== ENCOUNTER 2019-10-09 16:36 | Emergency (ER) | payer OTHER ==
[~2019-10-09] VITALS: Ht 167 cm; Wt 155.0 kg
[2019-10-09] MEDS ORDERED: NS IV 1000 ML 1,000 ML IV SCH (17:34)
[2019-10-09 17:42] LABS: BASOPHILS % (AUTO) 0 % (0-10); EOSINOPHILS % (AUTO) 0 % (0-10); HEMATOCRIT 39 % (35-52); HEMOGLOBIN 12.6 G/DL (11.5-16.0); LYMPHOCYTES # (AUTO) 1.6 X 10^3 (1.0-4.0); LYMPHOCYTES % (AUTO) 23 % (12-44); MEAN CORPUSCULAR HEMOGLOBIN 27 PG (25-34); MEAN CORPUSCULAR HGB CONC 33 G/DL (32-36); MEAN CORPUSCULAR VOLUME 84 FL (80-99); MEAN PLATELET VOLUME 10.2 FL (7.4-10.4); MONOCYTES # (AUTO) 0.4 X 10^3 (0.0-1.0); MONOCYTES % (AUTO) 5 % (0-12); NEUTROPHILS % (AUTO) 71 % (42-75); PLATELET COUNT 193 10^3/uL (130-400); RED CELL DISTRIBUTION WIDTH 14.4 % (10.0-14.5); WHITE BLOOD COUNT 7.1 10^3/uL (4.3-11.0)
[2019-10-09 17:59] LABS: ALANINE AMINOTRANSFERASE 34 U/L (0-55); ALBUMIN 4.3 GM/DL (3.2-4.5); ALKALINE PHOSPHATASE 98 U/L (40-136); BILIRUBIN,TOTAL 0.3 MG/DL (0.1-1.0); BUN/CREATININE RATIO 13; CALCIUM 8.9 MG/DL (8.5-10.1); CARBON DIOXIDE 25 MMOL/L (21-32); CHLORIDE 105 MMOL/L (98-107); CREATININE SERUM 0.76 MG/DL (0.60-1.30); GFR ESTIMATED > 60; GLUCOSE 86 MG/DL (70-105); LIPASE 13 U/L (8-78); POTASSIUM 3.4 MMOL/L (3.6-5.0); SODIUM 141 MMOL/L (135-145); TOTAL PROTEIN 8.5 GM/DL (6.4-8.2)
[2019-10-09 18:36] LABS: BILIRUBIN,URINE NEGATIVE (NEGATIVE); CLARITY,URINE CLEAR; COLOR,URINE YELLOW; GLUCOSE, URINE (UA) NEGATIVE (NEGATIVE); KETONES,URINE NEGATIVE (NEGATIVE); LEUKOCYTE ESTERASE ,URINE NEGATIVE (NEGATIVE); NITRITE,URINE NEGATIVE (NEGATIVE); PROTEIN,URINE NEGATIVE (NEGATIVE)
[2019-10-09 18:45] LABS: BACTERIA,URINE NEGATIVE /HPF; SQUAMOUS EPITHELIAL CELL,UR 0-2 /HPF
[2019-10-09] MEDS ORDERED: NS 100 ML (IVPB) BAG IV ONE (19:00)
[2019-10-09] MEDS ORDERED: HOLD METFORMIN - RECEIVED CONTRAST 20 ML VIAL IV SCH (19:00)
[2019-10-09] MEDS ORDERED: CATHETER FLUSH 10 ML SYR IV PRN (19:00)
[2019-10-09] MEDS ORDERED: fentaNYL INJECTION 100 MCG/2 ML AMP IVP ONE (19:00)
[2019-10-09] MEDS ORDERED: IOHEXOL 350 MG/ML 100 ML (OMNIPAQUE 350) VIAL IV ONE (19:00)
--- NOTE | 2019-10-09 19:02 | ED Abdominal Pain ---
General Chief Complaint: Abdominal/GI Problems Stated Complaint: ABD/BACK PAIN Nursing Triage Note: Patient ambulatory to ER room 4 with spouse. Patient complaining of lower abdominal pain that began around 11:00 AM today. Patient states she has had ongoing lower back pain for several days but has gotten much worse today. Patient denies any difficulty or pain with urination. Sepsis Screen: No Definite Risk Source of Information: Patient Exam Limitations: No Limitations (ZANDRA OLSEN MD) History of Present Illness Date Seen by Provider: Oct 09, 2019 Time Seen by Provider: 16:37 Initial Comments This 49-year-old woman presents to the emergency room with complaints of upper abdominal pain and mid to lower back pain. She has had symptoms intermittently for 2-3 weeks but they have become severe last night and today. She denies any nausea, vomiting, or diarrhea. Pain seems to be most intense in the right upper quadrant and right mid to lower back. She denies any urinary changes. She has been afebrile. She states her pain as 9/10. (ZANDRA OLSEN MD) Allergies and Home Medications Allergies Coded Allergies: amoxicillin (Verified Allergy, Mild, LOOSE STOOLS, 09/28/18) azithromycin (Unverified Allergy, Mild, LOOSE STOOLS, 09/28/18) clavulanic acid (Verified Allergy, Mild, LOOSE STOOLS, 09/28/18) methylprednisolone (Unverified Allergy, Mild, RASH, 09/28/18) Home Medications Docusate Sodium 100 Mg Capsule, 100 MG PO BID Prescribed by: REGGIE GUERRERO on 10/06/18 0636 Estradiol 1 Mg Tablet, 1 MG PO DAILY, (Reported) Fluticasone Propionate 9.9 Ml [place].susp, 9.9 ML NS DAILY PRN, (Reported) Hydrocodone Bit/Acetaminophen 1 Tab Tab, 1 TAB PO Q6H PRN for PAIN-MODERATE Prescribed by: ROHITH CASEY on 10/11/19 1417 Hyoscyamine Sulfate 0.125 Mg Tablet, 0.125 MG PO BID, (Reported) Ibuprofen 800 Mg Tablet, 800 MG PO Q6H PRN for PAIN-MILD OR TEMPATURE Prescribed by: REGGIE GUERRERO on 10/06/18 0636 Lifitegrast 1 Each [place], 1 EACH OP BID PRN for DRY EYES, (Reported) Lisinopril 10 Mg Tablet, 10 MG PO DAILY, (Reported) Loratadine 10 Mg Tablet, 10 MG PO DAILY, (Reported) Metaxalone 800 Mg Tablet, 800 MG PO PRN, (Reported) Pantoprazole Sodium 40 Mg Tablet.dr, 40 MG PO DAILY, (Reported) Tramadol HCl 50 Mg Tablet, 50 MG PO Q6H PRN for PAIN Prescribed by: JUNE LORENZANA on 10/09/19 0717 Patient Home Medication List Home Medication List Reviewed: Yes (ZANDRA OLSEN MD) Review of Systems Review of Systems Constitutional: no symptoms reported EENTM: No Symptoms Reported Respiratory: No Symptoms Reported Cardiovascular: No Symptoms Reported Gastrointestinal: See HPI Genitourinary: No Symptoms Reported Musculoskeletal: see HPI Skin: no symptoms reported Psychiatric/Neurological: No Symptoms Reported Endocrine: No Symptoms Reported Hematologic/Lymphatic: No Symptoms Reported (ZANDRA OLSEN MD) Past Lzkbgqc-Fszhii-Welkmq Hx Past Med/Social Hx: Reviewed Nursing Past Med/Soc Hx (ZANDRA OLSEN MD) Patient Social History Alcohol Use: Denies Use Recreational Drug Use: No Smoking Status: Never a Smoker 2nd Hand Smoke Exposure: No Recent Foreign Travel: No Contact w/Someone Who Travel: No Recent Infectious Disease Expo: No Recent Hopitalizations: No (ZANDRA OLSEN MD) Immunizations Up To Date Date of Influenza Vaccine: May 25, 2019 (ZANDRA OLSEN MD) Seasonal Allergies Seasonal Allergies: Yes (ZANDRA OLSEN MD) Past Medical History Surgeries: Yes (CYST FROM CHIN, BONE MARROW ASPIRATION) Hysterectomy Respiratory: No Cardiac: Yes Hypertension Neurological: No Reproductive Disorders: No Female Reproductive Disorders: Menstrual Problems, 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: Hysterectomy Sexually Transmitted Disease: No HIV/AIDS: No Genitourinary: No Gastrointestinal: Yes Gastroesophageal Reflux, Chronic Constipation, Chronic Diarrhea, Irritable Bowel Musculoskeletal: No Endocrine: No HEENT: Yes (GLASSES) Loss of Vision: Bilateral Hearing Impairment: Denies Cancer: No Psychosocial: No Integumentary: No Blood Disorders: Yes (HX ANEMIA) Adverse Reaction/Blood Tranf: No (N/A) (ZANDRA OLSEN MD) Family Medical History Reviewed Nursing Family Hx (ZANDRA OLSEN MD) No Pertinent Family Hx (ZANDRA OLSEN MD) Physical Exam Vital Signs Vital Signs - First Documented 10/09/19 16:51 Temp 36.3 Pulse 74 Resp 18 B/P (MAP) 157/111 (126) Pulse Ox 99 O2 Delivery Room Air (JUNE LORENZANA) Vital Signs Capillary Refill : Less Than 3 Seconds (ZANDRA OLSEN MD) Height/Weight/BMI Height: 5'6.00" Weight: 159lbs. 9.0oz. 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 II-XII nml as tested, no motor/sensory deficits, alert, normal mood/affect, oriented x 3 Skin: normal color, warm/dry (ZANDRA OLSEN MD) Progress/Results/Core Measures Results/Orders Lab Results Laboratory Tests Test 10/09/19 17:11 10/09/19 18:23 Range/Units White Blood Count 7.1 4.3-11.0 10^3/uL Red Blood Count 4.60 4.35-5.85 10^6/uL Hemoglobin 12.6 11.5-16.0 G/DL Hematocrit 39 35-52 % Mean Corpuscular Volume 84 80-99 FL Mean Corpuscular Hemoglobin 27 25-34 PG Mean Corpuscular Hemoglobin Concent 33 32-36 G/DL Red Cell Distribution Width 14.4 10.0-14.5 % Platelet Count 193 130-400 10^3/uL Mean Platelet Volume 10.2 7.4-10.4 FL Neutrophils (%) (Auto) 71 42-75 % Lymphocytes (%) (Auto) 23 12-44 % Monocytes (%) (Auto) 5 0-12 % Eosinophils (%) (Auto) 0 0-10 % Basophils (%) (Auto) 0 0-10 % Neutrophils # (Auto) 5.0 1.8-7.8 X 10^3 Lymphocytes # (Auto) 1.6 1.0-4.0 X 10^3 Monocytes # (Auto) 0.4 0.0-1.0 X 10^3 Eosinophils # (Auto) 0.0 0.0-0.3 10^3/uL Basophils # (Auto) 0.0 0.0-0.1 10^3/uL Sodium Level 141 135-145 MMOL/L Potassium Level 3.4 L 3.6-5.0 MMOL/L Chloride Level 105 98-107 MMOL/L Carbon Dioxide Level 25 21-32 MMOL/L Anion Gap 11 5-14 MMOL/L Blood Urea Nitrogen 10 7-18 MG/DL Creatinine 0.76 0.60-1.30 MG/DL Estimat Glomerular Filtration Rate > 60 BUN/Creatinine Ratio 13 Glucose Level 86 70-105 MG/DL Calcium Level 8.9 8.5-10.1 MG/DL Corrected Calcium 8.7 8.5-10.1 MG/DL Total Bilirubin 0.3 0.1-1.0 MG/DL Aspartate Amino Transf (AST/SGOT) 52 H 5-34 U/L Alanine Aminotransferase (ALT/SGPT) 34 0-55 U/L Alkaline Phosphatase 98 40-136 U/L C-Reactive Protein High Sensitivity 0.99 H 0.00-0.50 MG/DL Total Protein 8.5 H 6.4-8.2 GM/DL Albumin 4.3 3.2-4.5 GM/DL Lipase 13 8-78 U/L Urine Color YELLOW Urine Clarity CLEAR Urine pH 8.0 5-9 Urine Specific [place] 1.010 L 1.016-1.022 Urine Protein NEGATIVE NEGATIVE Urine Glucose (UA) NEGATIVE NEGATIVE Urine Ketones NEGATIVE NEGATIVE Urine Nitrite NEGATIVE NEGATIVE Urine Bilirubin NEGATIVE NEGATIVE Urine Urobilinogen 0.2 < = 1.0 MG/DL Urine Leukocyte Esterase NEGATIVE NEGATIVE Urine RBC (Auto) NEGATIVE NEGATIVE Urine RBC NONE /HPF Urine WBC NONE /HPF Urine Squamous Epithelial Cells 0-2 /HPF Urine Crystals NONE /LPF Urine Bacteria NEGATIVE /HPF Urine Casts NONE /LPF Urine Mucus NEGATIVE /LPF Urine Culture Indicated NO (JUNE LORENZANA) My Orders Orders - JUNE LORENZANA Ua Culture If Indicated (10/09/19 16:37) Rx-Tramadol Hcl (Rx-Ultram) (10/09/19 21:04) (JUNE LORENZANA) Medications Given in ED (JUNE LORENZANA) Vital Signs/I&O 10/09/19 10/09/19 10/09/19 16:51 19:49 21:15 Temp 36.3 36.2 Pulse 74 72 Resp 18 16 16 B/P (MAP) 157/111 (126) 150/83 (105) 142/92 Pulse Ox 99 100 98 O2 Delivery Room Air Room Air Room Air (JUNE LORENZANA) Blood Pressure Mean: 126 Progress Progress Note : Progress Note Patient had been seen and examined. She initially declined pain medications. However, she eventually requested something for pain control and was given fentanyl. IV fluids were also infused. CT scan was discussed and ordered. Results were pending at the time of transition of care to June Lorenzana. See her notes above. (ZANDRA OLSEN MD) Progress Note : Progress Note 2014 assumed care of patient from Dr. Rubio 2054 Patient re-examined, abdomen less tender, + BS times 4 quad. + Shelby, Neg rebound. Patient reports her symptoms are improving. CT results discussed with her. Discharge instructions and return precautions reviewed in detail. I do believe she'll benefit from an ultrasound of the gallbladder if her symptoms are not improving early next week. This can be scheduled on an outpatient basis by her primary care provider. (JUNE LORENZANA) Diagnostic Imaging Diagonstic Imaging: CT Plain Films/CT/US/NM/MRI: abdomen, pelvis Comments NAME: CORINA SERVIN MED REC#: [id number] PT STATUS: REG ER : 1970 PHYSICIAN: ZANDRA OLSEN MD ADMIT DATE: 10/09/19/ER Signed Date of Exam:10/09/19 CT ABDOMEN/PELVIS W INDICATION: Lower abdominal pain and back pain, history of hysterectomy. TECHNIQUE: Multiple contiguous axial images were obtained through the abdomen and pelvis after administration of intravenous contrast. Auto Exposure Controls were utilized during the CT exam to meet ALARA standards for radiation dose reduction. COMPARISON: There is no previous study for comparison. FINDINGS: The visualized portions of the lung bases are clear except for some linear atelectatic change in the left base. There is no pleural fluid. There is no free intraperitoneal air. There is cardiomegaly. The liver shows mild low-density change compatible with fatty infiltration. There is a small enhancing area in the posterior portion of the right lobe which may represent a hemangioma but is nonspecific. The spleen, adrenals and pancreas are normal in appearance. The kidneys, bilaterally, appear unremarkable. Gallbladder appears grossly unremarkable. There is no retro-peritoneal mass or adenopathy. There is no ascites or abnormal fluid collection. Visualized bowel loops show no overt obstruction or focal bowel wall thickening. IMPRESSION: There is cardiomegaly. There is a small questionable hemangioma in the right lobe of the liver, consider follow-up. There is no sign of bowel obstruction, abnormal fluid collection or focal inflammatory process. Patient has had previous hysterectomy. Dictated by: Dictated on workstation # [id number] Dict: 10/09/191934 Trans: 10/09/192056 [facility] [id number] Interpreted by: DEJUAN BRIAN MD Electronically signed by: DEJUAN BRIAN MD 10/09/192056 (ZANDRA OLSEN MD) Departure Impression Primary Impression: Abdominal pain Qualified Codes: R10.11 - Right upper quadrant pain Disposition: 01 HOME, SELF-CARE Condition: Improved Departure-Patient Inst. Decision time for Depature: 20:55 (JUNE LORENZANA) Referrals: DORIS ARGUETA MD (PCP/Family) Primary Care Physician Patient Instructions: Acute Abdomen (Belly Pain), Adult (DC), Gallstones (DC) Add. Discharge Instructions: Clear liquid diet for the next 8 hours and then going area and fried foods. Use ibuprofen 600 mg every 8 hours as needed for pain. Use her hyocasomine has been one tablet every 6-8 hours as needed for GI upset or pain. Use tramadol every 8 hours for severe pain. Follow-up with your primary care provider on Friday if symptoms are not improving or worsen, request an outpatient ultrasound of the gallbladder. Return to the emergency department for new, urgent health care needs. All discharge instructions reviewed with patient and/or family. Voiced understanding. Scripts Tramadol HCl (Tramadol HCl) 50 Mg Tablet 50 MG PO Q6H PRN for PAIN, #15 TAB 0 Refills Prov: JUNE LORENZANA 10/09/19 ZANDRA OLSEN MD Oct 09, 2019 19:02 JUNE LORENZANA Oct 09, 2019 21:08
--- NOTE | 2019-10-09 19:48 | Diagnostic Imaging Report ---
INDICATION: Lower abdominal pain and back pain, history of hysterectomy. TECHNIQUE: Multiple contiguous axial images were obtained through the abdomen and pelvis after administration of intravenous contrast. Auto Exposure Controls were utilized during the CT exam to meet ALARA standards for radiation dose reduction. COMPARISON: There is no previous study for comparison. FINDINGS: The visualized portions of the lung bases are clear except for some linear atelectatic change in the left base. There is no pleural fluid. There is no free intraperitoneal air. There is cardiomegaly. The liver shows mild low-density change compatible with fatty infiltration. There is a small enhancing area in the posterior portion of the right lobe which may represent a hemangioma but is nonspecific. The spleen, adrenals and pancreas are normal in appearance. The kidneys, bilaterally, appear unremarkable. Gallbladder appears grossly unremarkable. There is no retro-peritoneal mass or adenopathy. There is no ascites or abnormal fluid collection. Visualized bowel loops show no overt obstruction or focal bowel wall thickening. IMPRESSION: There is cardiomegaly. There is a small questionable hemangioma in the right lobe of the liver, consider follow-up. There is no sign of bowel obstruction, abnormal fluid collection or focal inflammatory process. Patient has had previous hysterectomy. Dictated by: Dictated on workstation # [id number]
[2019-10-09 19:49] VITALS: BP 150/83
[2019-10-09] MEDS ORDERED: RX-TRAMADOL 50 MG (ULTRAM) TAB PPK#4 PO STA (21:04)
[2019-10-09] MEDS ORDERED: TRM50T PO (21:07)
[2019-10-09 21:15] VITALS: BP 142/92
[2019-10-11] MEDS ORDERED: ESTR1TAB24 PO (10:35)
[2019-10-11] MEDS ORDERED: ACHD5005 PO (14:17)
== END 2019-10-09 21:17 | disposition home or self-care (01) ==
LOC: EDUNIT# 16:36 → ER 16:37
DX: R10.11 Right upper quadrant pain (principal); I10 Essential (primary) hypertension; K21.9 Gastro-esophageal reflux disease without esophagitis; Z88.0 Allergy status to penicillin; Z88.1 Allergy status to other antibiotic agents; Z88.8 Allergy status to other drugs, medicaments and biological substances; Z79.52 Long term (current) use of systemic steroids; Z79.51 Long term (current) use of inhaled steroids
CPT/HCPCS: 36415; 74177; 80053; 81000; 83690; 85025; 86141; 96361; 96374

== ENCOUNTER → 2020-01-31 | Outpatient (CLI) | payer OTHER ==
[~2020-01-31] MED LIST changes: +ACHD5005 PO; +TRM50T PO
== END ==
LOC: LABNPT 11:10
PROVIDERS: ATTEND Pediatrics
DX: R05 Cough (principal); R09.89 Other specified symptoms and signs involving the circulatory and respiratory systems; Z20.828 Contact with and (suspected) exposure to other viral communicable diseases
CPT/HCPCS: 87635

== ENCOUNTER → 2020-02-11 | Outpatient (CLI) | payer OTHER | LOC: LABNPT 08:11 | PROVIDERS: ATTEND Pediatrics | DX: Z11.59 Encounter for screening for other viral diseases (principal); Z20.828 Contact with and (suspected) exposure to other viral communicable diseases | CPT/HCPCS: 86769; U0002; 87635 ==

== ENCOUNTER 2020-07-04 05:35 | Outpatient (RCR) | payer OTHER ==
[~2020-07-04] VITALS: Ht 167 cm; Wt 68.6 kg
[~2020-07-04 05:35] MED LIST changes: +BUTA1TAB9 PO; -PANT40TA3 PO; +PANT40TA52 PO
== END 2020-07-04 11:00 | disposition home or self-care (01) ==
LOC: PREOP 05:35
PROVIDERS: ATTEND Surgery
DX: Z01.812 Encounter for preprocedural laboratory examination (principal); Z20.828 Contact with and (suspected) exposure to other viral communicable diseases
CPT/HCPCS: 87635

== ENCOUNTER 2020-07-07 11:47 | Day surgery (SDC) | payer OTHER ==
[~2020-07-07] VITALS: Ht 167 cm; Wt 68.6 kg
[2020-07-07] MEDS ORDERED: ATROPINE INJ 0.4 MG/ML SDV IV ONE (11:48)
[2020-07-07] MEDS ORDERED: PROPOFOL INJECTION 50 ML IV ONE (12:06)
[2020-07-07] MEDS ORDERED: MIDAZOLAM 2 MG/2 ML (VERSED) VIAL ONE (12:07)
[2020-07-07] MEDS ORDERED: LACTATED RINGERS 1,000 ML IV ONE (12:08)
[2020-07-07 12:23] VITALS: BP 138/94
--- NOTE | 2020-07-07 12:33 | Progress Note-Pre Operative ---
Pre-Operative Progress Note H&P Reviewed The H&P was reviewed, patient examined and no changes noted. Date Seen by Provider: Jul 07, 2020 Time Seen by Provider: 12:32 Date H&P Reviewed: Jul 07, 2020 Time H&P Reviewed: 12:33 Pre-Operative Diagnosis: gerd, change in bowel habits FATOUMATA WOLF DO Jul 07, 2020 12:33
[2020-07-07] MEDS ORDERED: HURRICAINE EXT TUBE (BENZOCAINE) ONE (12:42)
[2020-07-07] MEDS ORDERED: proPOfol 200 MG/20 ML (DIPRIVAN) VIAL IV ONE (12:59)
[2020-07-07] MEDS ORDERED: LACTATED RINGERS 1,000 ML IV STA (13:08)
[2020-07-07 13:40] VITALS: BP 128/79
[2020-07-07 13:45] VITALS: BP 127/75
[2020-07-07 13:50] VITALS: BP 128/82
[2020-07-07 14:20] VITALS: BP 133/66
[2020-07-07 14:55] VITALS: BP 133/66
--- NOTE | 2020-07-07 15:13 | Anesthesia-General Post-Op ---
MAC Patient Condition Mental Status/LOC: Same as Preop Cardiovascular: Satisfactory Nausea/Vomiting: Absent Respiratory: Satisfactory Pain: Controlled Complications: Absent Post Op Complications Complications None Follow Up Care/Instructions Patient Instructions None needed. Anesthesiology Discharge Order Discharge Order Patient is doing well, no complaints, stable vital signs, no apparent adverse anesthesia problems. No complications reported per nursing. ROSAMARIA SHERMAN CRNA Jul 07, 2020 15:12
--- NOTE | 2020-07-08 00:37 | OPERATIVE REPORT ---
DATE OF SERVICE: 07/07/2020 PREOPERATIVE DIAGNOSES: Gastroesophageal reflux disease, change in bowel habits. POSTOPERATIVE DIAGNOSES: Gastric polyps and incomplete colonoscopy. PROCEDURE: EGD with biopsies and incomplete colonoscopy. SURGEON: Fatoumata Madera DO ANESTHESIA: Per INTERNET MARKETING MANAGER. ESTIMATED BLOOD LOSS: None. COMPLICATIONS: None. INDICATIONS: The patient is a 50-year-old female with GERD symptoms and change in bowel habits. She understands risks and benefits of procedure and wished to proceed with procedure. Consent was signed on the chart. DESCRIPTION OF PROCEDURE: The patient was taken to the endoscopy suite, placed in left lateral recumbent position. Timeout was performed. Scope was inserted in mouth, down the esophagus, stomach and into the duodenum without difficulty. Scope was slowly retracted back into the stomach where it was further insufflated. No masses or ulcerations. The patient had gastric polyps. Biopsy of the antrum was obtained. Scope was retroflexed noting no other pathology. Scope was returned to its normal position, slowly withdrawn to distal esophagus. No polyps, masses or ulcerations. Biopsy of GE junction was obtained. Scope was then slowly retracted back until completely removed noting no other pathology. Digital rectal exam was performed. There were no palpable polyps, masses or ulcerations. Scope was inserted in the rectum and advanced through the sigmoid, which was very tortuous. The patient will be repositioned multiple times. Scope was then continued slowly advanced through the ascending and transverse colon where the patient continued to be repositioned multiple times, but eventually the scope was able to be further advanced despite multiple attempts of repositioning. Scope was then slowly retracted back. No polyps, masses or ulcerations were seen within the transverse, descending, sigmoid colon. Once in the rectum, scope was inserted and retracted multiple times without any other pathology noted. Scope was slowly retracted back until completely removed. RECOMMENDATIONS: The patient will be arranged for barium enema for further evaluation of the rest of the colon. We will await any changes until pathology comes back from biopsies. Any issues before then be seen at that time. Job ID: [id number] DocumentID: [id number] Dictated Date: 07/07/2020 20:12:14 Tailings Worker Date: 07/08/2020 00:36:29 Dictated By: FATOUMATA MADERA DO
== END 2020-07-07 14:55 | disposition home or self-care (01) ==
LOC: ENDO 11:47
PROVIDERS: ATTEND Surgery
DX: K21.9 Gastro-esophageal reflux disease without esophagitis (principal); R19.4 Change in bowel habit; K31.7 Polyp of stomach and duodenum; I10 Essential (primary) hypertension; Z79.899 Other long term (current) drug therapy; Z88.1 Allergy status to other antibiotic agents; Z88.8 Allergy status to other drugs, medicaments and biological substances; Z90.710 Acquired absence of both cervix and uterus
CPT/HCPCS: 88305

== ENCOUNTER → 2020-08-03 | Outpatient (CLI) | payer OTHER ==
[~2020-08-03] MED LIST changes: +DIATRIZOATE MEGLUM/SODIUM 37% 120 ML (GASTROGRAFIN) RC ONE
--- NOTE | 2020-08-03 16:58 | Diagnostic Imaging Report ---
CT ABDOMEN/PELVIS WO TECHNIQUE: Unenhanced CT imaging of the abdomen and pelvis was performed. 2-D reformats are created and submitted for interpretation. Automatic exposure controls were utilized to optimize patient dose. INDICATION: Incomplete colonoscopy. COMPARISON: CT abdomen and pelvis from 10/09/2019. FINDINGS: Evaluation of the abdominal viscera is mildly limited without contrast. Lower chest: The lung bases are clear. No pericardial or pleural effusion. Peritoneum: No free intraperitoneal air or fluid. Liver and biliary system: Stable cyst within left hepatic lobe. Cholecystectomy. No pathologic biliary ductal dilatation. Spleen and Pancreas: Spleen is normal. Unenhanced pancreas is grossly normal. Adrenals: Normal. tract: No renal or ureteral calculi. No obstructive uropathy. Hysterectomy has been performed. GI tract: Stomach is decompressed. No bowel obstruction. Rectal tube is in place. Contrast was instilled in a retrograde fashion which opacifies the rectum, sigmoid colon and descending colon. Remainder of the colon is filled with fluid. No annular stricture within the colon that would suggest neoplasm. No pericolonic inflammation. Appendix is not seen. Vasculature and Lymph nodes: Normal caliber aorta. No abdominal or pelvic lymphadenopathy. Musculoskeletal: No concerning osseous lesion. IMPRESSION: 1. Retrograde filling of the colon with contrast extends only to the level of the descending colon. However, there is no obstructing mass lesion and no concerning wall thickening of the colon that would suggest a high-grade neoplasm. 2. Filling defects within the rectum are likely due to stool. Dictated by: Dictated on workstation # [id number]
== END ==
LOC: RAD 15:45
PROVIDERS: ATTEND Surgery
DX: Z12.11 Encounter for screening for malignant neoplasm of colon (principal)
CPT/HCPCS: 74176

== ENCOUNTER → 2020-08-09 | Outpatient (CLI) | payer OTHER ==
[~2020-08-09] MED LIST changes: -DIATRIZOATE MEGLUM/SODIUM 37% 120 ML (GASTROGRAFIN) RC ONE
--- NOTE | 2020-08-10 20:42 | Diagnostic Imaging Report ---
INDICATION: Routine screening. COMPARISON: Prior mammograms from 01/22/2018 and 02/16/2016. EXAMINATION: 2D and 3D bilateral screening mammography was performed with CAD. 3D tomographic images were obtained and reviewed. The current study was also evaluated with a Computer Aided Detection (CAD) system. FINDINGS: Scattered fibroglandular densities are identified, bilaterally. The parenchymal pattern is stable. No dominant mass or malignant appearing microcalcifications are seen. Intraparenchymal lymph node in the upper outer right breast posterior depth is stable. Axillae are unremarkable. IMPRESSION: No mammographic features suspicious for malignancy are identified. ACR BI-RADS Category 2: Benign findings. Result letter will be mailed to the patient. Note: At least 10% of breast cancer is not imaged by mammography. Dictated by: Dictated on workstation # [id number]
== END ==
LOC: RAD 07:30
PROVIDERS: ATTEND Obstetrics & Gynecology
DX: Z12.31 Encounter for screening mammogram for malignant neoplasm of breast (principal)
CPT/HCPCS: 77063; 77067

== ENCOUNTER → 2021-03-01 | Outpatient (CLI) | payer OTHER ==
[~2021-03-01] MED LIST changes: +BUTA-235 PO; -BUTA1TAB9 PO; +CATHETER FLUSH 10 ML SYR IV PRN; +DICY20TA10 PO; +HOLD METFORMIN - RECEIVED CONTRAST 20 ML VIAL IV SCH; +IOHEXOL 350 MG/ML 100 ML (OMNIPAQUE 350) VIAL IV ONE; -LISI-556 PO; +LISI-729 PO; -LISI10TA2 PO; +LISI10TA25 PO; +NS 100 ML (IVPB) BAG IV ONE
--- NOTE | 2021-03-01 17:49 | Diagnostic Imaging Report ---
PROCEDURE: CT abdomen and pelvis with contrast. TECHNIQUE: Multiple contiguous axial images were obtained through the abdomen and pelvis after administration of intravenous contrast. Auto Exposure Controls were utilized during the CT exam to meet ALARA standards for radiation dose reduction. All CT scans use one or more of the following dose optimizing techniques: Automated exposure control, MA and/or KvP adjustment based on patient size and exam type or iterative reconstruction. INDICATION: Right lower quadrant abdominal pain. COMPARISON: 10/09/2019. FINDINGS: The subcapsular low-density lesion in the anterior left hepatic lobe is again noted. This could represent cyst or hemangioma. Gallbladder is surgically absent. There is no significant biliary ductal dilatation. No pancreatic, adrenal gland, or splenic lesion is identified. The kidneys are also unremarkable in appearance, and there is no evidence of free fluid within the abdomen. Partially opacified urinary bladder is unremarkable. There are nondilated fluid distended small bowel loops in the pelvis. There appears to be extension of small bowel into the right adnexal region. Otherwise, there is no evidence of mass or inflammation. There is no appendiceal region inflammation. IMPRESSION: Fluid distended small bowel loops in the pelvis could reflect mild ileus. Enteritis could have similar appearance. Otherwise, no definite acute abnormality is identified. Dictated by: Dictated on workstation # [id number]
== END ==
LOC: RAD 15:00
PROVIDERS: ATTEND Pediatrics
DX: K52.9 Noninfective gastroenteritis and colitis, unspecified (principal)
CPT/HCPCS: 74177

== ENCOUNTER 2021-03-04 17:27 | Emergency (ER) | payer OTHER ==
[~2021-03-04] VITALS: Ht 167 cm; Wt 68.0 kg
[~2021-03-04 17:27] MED LIST changes: -CATHETER FLUSH 10 ML SYR IV PRN; -DICY20TA10 PO; -HOLD METFORMIN - RECEIVED CONTRAST 20 ML VIAL IV SCH; -IOHEXOL 350 MG/ML 100 ML (OMNIPAQUE 350) VIAL IV ONE; -NS 100 ML (IVPB) BAG IV ONE
[2021-03-04 17:30] VITALS: BP 167/89
[2021-03-04] MEDS ORDERED: NS IV 1000 ML 1,000 ML IV STA (18:06)
--- NOTE | 2021-03-04 18:21 | ED Abdominal Pain ---
General Chief Complaint: Abdominal/GI Problems Stated Complaint: ABD PAIN Nursing Triage Note: PT AMB TO ROOM 6 PT CO OF ABD PAIN FOR 1 WEEK R LOWER ABD. PT SEEN BY DR ARGUETA ON FRIDAY LAST WEEK, CT DONE ON FRIDAY PT UNAWARE OF RESULTS. DENIES N/V/D W PAIN. PT STATES DOES HAVE HX OF IBS. PT DENIES PROBLEMS W BOWELS OR BLADDER AT THIS X Source of Information: Patient Exam Limitations: No Limitations History of Present Illness Date Seen by Provider: Mar 04, 2021 Time Seen by Provider: 18:00 Initial Comments Patient is a 50-year-old female who presents to the emergency department today with a chief complaint of abdominal pain. Onset of pain approximately a week ago. She saw her primary care physician and had a CAT scan done last Friday. These results were reviewed and were significant only for ileus with no other acute intra-abdominal pathology noted. Patient denies fevers chills, nausea, vomiting or diarrhea. She does have a history of irritable bowel syndrome. She has had previous colonoscopy and evaluations by Dr. Wolf. Patient has had previous cholecystectomy and localizes most of her pain to the right upper quadrant for me and epigastric area. Nothing makes the pain any better or any worse. She had taken some Tylenol last week for the pain but nothing recently. She denies black or bloody stools. No urinary complaints. No vaginal complaints. All other review of systems reviewed and negative except as stated. Timing/Duration: 1 Week Severity/Quality: Cramping Location: RUQ, LUQ Radiation: No Radiation Activities at Onset: None Associated Symptoms: Nausea/Vomiting Allergies and Home Medications Allergies Coded Allergies: amoxicillin (Verified Allergy, Mild, LOOSE STOOLS, 06/29/20) azithromycin (Unverified Allergy, Mild, LOOSE STOOLS, 06/29/20) clavulanic acid (Verified Allergy, Mild, LOOSE STOOLS, 06/29/20) methylprednisolone (Unverified Allergy, Mild, RASH, 06/29/20) Home Medications Butalb/Acetaminophen/Caffeine 1 Each Tablet, 1 EACH PO PRN, (Reported) Dicyclomine HCl 20 Mg Tablet, 20 MG PO Q6H PRN for abdominal pain Prescribed by: CATARINO MADSEN on 03/04/212006 Estradiol 1 Mg Tablet, 1 MG PO DAILY, (Reported) Fluticasone Propionate 9.9 Ml [place].susp, 9.9 ML NS DAILY PRN, (Reported) Hyoscyamine Sulfate 0.125 Mg Tablet, 0.125 MG PO BID, (Reported) Lisinopril 10 Mg Tablet, 10 MG PO DAILY, (Reported) Loratadine 10 Mg Tablet, 10 MG PO DAILY, (Reported) Metaxalone 800 Mg Tablet, 800 MG PO PRN, (Reported) Pantoprazole Sodium 40 Mg Tablet.dr, 40 MG PO DAILY, (Reported) Patient Home Medication List Home Medication List Reviewed: Yes Review of Systems Review of Systems Constitutional: see HPI EENTM: No Symptoms Reported Respiratory: No Symptoms Reported Cardiovascular: No Symptoms Reported Gastrointestinal: Abdominal Pain, Nausea, Poor Appetite Genitourinary: No Symptoms Reported Musculoskeletal: no symptoms reported Skin: no symptoms reported All Other Systems Reviewed Negative Unless Noted: Yes Past Imewcuo-Dkvxqd-Ifspem Hx Patient Social History Tobacco Use?: No Use of E-Cig and/or Vaping dev: No Substance use?: No Pt feels they are or have been: No Immunizations Up To Date Tetanus Booster (TDap): Unknown COVID19 Vaccine 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: [employer] Seasonal Allergies Seasonal Allergies: Yes Past Medical History Surgeries: Yes (CYST FROM CHIN,) Gallbladder, Hysterectomy Respiratory: No Cardiac: Yes (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-CLEAN) Hypertension Neurological: No Reproductive Disorders: No Female Reproductive Disorders: Denies 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 Sexually Transmitted Disease: No HIV/AIDS: No Genitourinary: No Gastrointestinal: Yes Gastroesophageal Reflux, Chronic Constipation, Chronic Diarrhea, Irritable Bowel Musculoskeletal: No Endocrine: No HEENT: Yes (glasses) Loss of Vision: Denies Hearing Impairment: Denies Cancer: No Psychosocial: No Integumentary: No Blood Disorders: Yes (Leukopenia) Adverse Reaction/Blood Tranf: No (N/A) Family Medical History No Pertinent Family Hx Physical Exam Vital Signs Vital Signs - First Documented 03/04/21 17:30 Temp 36.6 Pulse 78 Resp 18 B/P (MAP) 167/89 (115) Pulse Ox 98 Capillary Refill : Less Than 3 Seconds Height/Weight/BMI Height: 5'6.00" Weight: 159lbs. 9.0oz. 72.015668hc; 24.00 BMI Method:Stated General Appearance: WD/WN, no apparent distress Progress/Results/Core Measures Results/Orders Lab Results Laboratory Tests Test 03/04/21 18:27 03/04/21 19:10 Range/Units White Blood Count 3.5 L 4.3-11.0 10^3/uL Red Blood Count 4.39 3.80-5.11 10^6/uL Hemoglobin 12.7 11.5-16.0 g/dL Hematocrit 39 35-52 % Mean Corpuscular Volume 89 80-99 fL Mean Corpuscular Hemoglobin 29 25-34 pg Mean Corpuscular Hemoglobin Concent 33 32-36 g/dL Red Cell Distribution Width 12.4 10.0-14.5 % Platelet Count 182 130-400 10^3/uL Mean Platelet Volume 9.8 9.0-12.2 fL Immature Granulocyte % (Auto) 0 % Neutrophils (%) (Auto) 37 L 42-75 % Lymphocytes (%) (Auto) 56 H 12-44 % Monocytes (%) (Auto) 6 0-12 % Eosinophils (%) (Auto) 1 0-10 % Basophils (%) (Auto) 1 0-10 % Neutrophils # (Auto) 1.3 L 1.8-7.8 10^3/uL Lymphocytes # (Auto) 1.9 1.0-4.0 10^3/uL Monocytes # (Auto) 0.2 0.0-1.0 10^3/uL Eosinophils # (Auto) 0.0 0.0-0.3 10^3/uL Basophils # (Auto) 0.0 0.0-0.1 10^3/uL Immature Granulocyte # (Auto) 0.0 0.0-0.1 10^3/uL Sodium Level 141 135-145 MMOL/L Potassium Level 3.7 3.6-5.0 MMOL/L Chloride Level 107 98-107 MMOL/L Carbon Dioxide Level 23 21-32 MMOL/L Anion Gap 11 5-14 MMOL/L Blood Urea Nitrogen 9 7-18 MG/DL Creatinine 0.84 0.60-1.30 MG/DL Estimat Glomerular Filtration Rate > 60 BUN/Creatinine Ratio 11 Glucose Level 73 70-105 MG/DL Calcium Level 8.9 8.5-10.1 MG/DL Corrected Calcium 8.8 8.5-10.1 MG/DL Magnesium Level 2.1 1.6-2.4 MG/DL Total Bilirubin 0.3 0.1-1.0 MG/DL Aspartate Amino Transf (AST/SGOT) 31 5-34 U/L Alanine Aminotransferase (ALT/SGPT) 30 0-55 U/L Alkaline Phosphatase 69 40-136 U/L C-Reactive Protein High Sensitivity 0.78 H 0.00-0.50 MG/DL Total Protein 8.1 6.4-8.2 GM/DL Albumin 4.1 3.2-4.5 GM/DL Urine Color YELLOW Urine Clarity CLEAR Urine pH 6.0 5-9 Urine Specific [place] 1.015 L 1.016-1.022 Urine Protein NEGATIVE NEGATIVE Urine Glucose (UA) NEGATIVE NEGATIVE Urine Ketones TRACE H NEGATIVE Urine Nitrite NEGATIVE NEGATIVE Urine Bilirubin NEGATIVE NEGATIVE Urine Urobilinogen 0.2 < = 1.0 MG/DL Urine Leukocyte Esterase NEGATIVE NEGATIVE Urine RBC (Auto) NEGATIVE NEGATIVE Urine RBC NONE /HPF Urine WBC NONE /HPF Urine Squamous Epithelial Cells 2-5 /HPF Urine Crystals NONE /LPF Urine Bacteria TRACE /HPF Urine Casts NONE /LPF Urine Mucus SMALL H /LPF Urine Culture Indicated NO My Orders Orders - CATARINO MADSEN MD Dicyclomine Capsule (Bentyl Capsule) (03/04/21 18:30) Vital Signs/I&O 03/04/21 17:30 Temp 36.6 Pulse 78 Resp 18 B/P (MAP) 167/89 (115) Pulse Ox 98 Blood Pressure Mean: 115 Progress Progress Note : Time: 20:04 Progress Note Patient reevaluated she thinks the Bentyl has helped a little bit. She still h as some abdominal discomfort. No nausea. Labs have been reviewed and are all within normal limits. I advised her to follow-up with Dr. Argueta and Dr. Wolf tomorrow. She verbalized understanding. All questions have been sought and answered. I have no clinical or objective findings to warrant further studies from the emergency department. Clinically she does not appear to have a bowel obstruction or any other acute intra-abdominal pathology. She will be sent home with the Bentyl and instructions for bland diet/clear liquids and to advance as tolerated over the course of the next 24 hours. Departure Impression Primary Impression: Abdominal pain Qualified Codes: R10.11 - Right upper quadrant pain Disposition: 01 HOME, SELF-CARE Condition: Stable Departure-Patient Inst. Decision time for Depature: 20:05 Referrals: FATOUMATA WOLF JOHN M MD (PCP/Family) Primary Care Physician Patient Instructions: Abdominal Pain, Adult ED Add. Discharge Instructions: Please follow a clear liquid/bland diet for the next 24 hours then slowly adv ance as tolerated. Take the Bentyl every 6 hours, 30 minutes before eating for pain. Return to the emergency room for worse pain, fever, vomiting or any other emergent concerning symptoms. Please follow-up with your primary care provider tomorrow for possibly ordering a liver ultrasound and also follow-up with Dr. Wolf. Scripts Dicyclomine HCl (Dicyclomine HCl) 20 Mg Tablet 20 MG PO Q6H PRN for abdominal pain, #60 TAB Prov: CATARINO MADSEN MD 03/04/21 CATARINO MADSEN MD Mar 04, 2021 18:21
[2021-03-04] MEDS ORDERED: DICYCLOMINE 10 MG (BENTYL) CAP PO SCH (18:30)
[2021-03-04 18:32] LABS: BASOPHILS % (AUTO) 1 % (0-10); EOSINOPHILS % (AUTO) 1 % (0-10); HEMATOCRIT 39 % (35-52); HEMOGLOBIN 12.7 g/dL (11.5-16.0); LYMPHOCYTES # (AUTO) 1.9 10^3/uL (1.0-4.0); LYMPHOCYTES % (AUTO) 56 % (12-44); MEAN CORPUSCULAR HEMOGLOBIN 29 pg (25-34); MEAN CORPUSCULAR HGB CONC 33 g/dL (32-36); MEAN CORPUSCULAR VOLUME 89 fL (80-99); MEAN PLATELET VOLUME 9.8 fL (9.0-12.2); MONOCYTES # (AUTO) 0.2 10^3/uL (0.0-1.0); MONOCYTES % (AUTO) 6 % (0-12); NEUTROPHILS # (AUTO) 1.3 10^3/uL (1.8-7.8); NEUTROPHILS % (AUTO) 37 % (42-75); PLATELET COUNT 182 10^3/uL (130-400); WHITE BLOOD COUNT 3.5 10^3/uL (4.3-11.0)
[2021-03-04 18:43] LABS: ALBUMIN 4.1 GM/DL (3.2-4.5); CHLORIDE 107 MMOL/L (98-107); POTASSIUM 3.7 MMOL/L (3.6-5.0); SODIUM 141 MMOL/L (135-145)
[2021-03-04 18:44] LABS: CALCIUM 8.9 MG/DL (8.5-10.1)
[2021-03-04 18:45] LABS: GLUCOSE 73 MG/DL (70-105); TOTAL PROTEIN 8.1 GM/DL (6.4-8.2)
[2021-03-04 18:47] LABS: BILIRUBIN,TOTAL 0.3 MG/DL (0.1-1.0); CARBON DIOXIDE 23 MMOL/L (21-32)
[2021-03-04 18:49] LABS: ALKALINE PHOSPHATASE 69 U/L (40-136); CREATININE SERUM 0.84 MG/DL (0.60-1.30); GFR ESTIMATED > 60
[2021-03-04 18:50] LABS: BUN/CREATININE RATIO 11
[2021-03-04 18:52] LABS: ALANINE AMINOTRANSFERASE 30 U/L (0-55)
[2021-03-04 18:53] LABS: MAGNESIUM 2.1 MG/DL (1.6-2.4)
[2021-03-04 19:19] LABS: BILIRUBIN,URINE NEGATIVE (NEGATIVE); CLARITY,URINE CLEAR; COLOR,URINE YELLOW; GLUCOSE, URINE (UA) NEGATIVE (NEGATIVE); KETONES,URINE TRACE (NEGATIVE); LEUKOCYTE ESTERASE ,URINE NEGATIVE (NEGATIVE); NITRITE,URINE NEGATIVE (NEGATIVE); PROTEIN,URINE NEGATIVE (NEGATIVE)
[2021-03-04 19:25] LABS: BACTERIA,URINE TRACE /HPF
[2021-03-04] MEDS ORDERED: DICY20TA10 PO (20:07)
== END 2021-03-04 20:12 | disposition home or self-care (01) ==
LOC: EDUNIT# 17:27 → ER 17:28
DX: R10.11 Right upper quadrant pain (principal); R10.12 Left upper quadrant pain; I10 Essential (primary) hypertension; K21.9 Gastro-esophageal reflux disease without esophagitis; Z90.49 Acquired absence of other specified parts of digestive tract; Z79.899 Other long term (current) drug therapy
CPT/HCPCS: 36415; 80053; 81000; 83735; 85025; 86141

== ENCOUNTER → 2021-05-22 | Outpatient (CLI) | payer OTHER ==
[~2021-05-22] MED LIST changes: +DICY20TA10 PO
--- NOTE | 2021-05-22 19:32 | Diagnostic Imaging Report ---
PROCEDURE: CT sinuses without contrast TECHNIQUE: Multiple contiguous axial images were obtained through the sinuses without the use of intravenous contrast. Coronal and sagittal reformations were then performed. Auto Exposure Controls were utilized during the CT exam to meet ALARA standards for radiation dose reduction. INDICATION: Recurrent sinusitis, chronic sinusitis, pain. COMPARISON: CT of the head dated 09/05/2016. FINDINGS: The frontal sinuses are clear. Frontoethmoidal recesses are clear. Ethmoid air cells are clear. The sphenoid sinuses are clear. The maxillary sinuses are clear. The mastoid air cells and middle ear cavities are clear. Leftward nasal septal deviation with associated leftward projecting nasal spur. Ilsa bullosa of the bilateral ostiomeatal complexes. The left ostiomeatal complex is patent. The right ostiomeatal complex is very minimally narrowed secondary to mucosal thickening. The lamina papyracea are intact. No temporomandibular joint dislocation. No acute facial fracture. No intracranial midline shift. The orbits are unremarkable. Parapharyngeal fat is symmetric and well maintained. No focal fluid collection. IMPRESSION: 1. Minimal narrowing of the right ostiomeatal complex secondary to minimal mucosal thickening. 2. Otherwise, the paranasal sinuses are clear. 3. Leftward deviation of the nasal septum with associated leftward projecting nasal spur. 4. Ilsa bullosa of the bilateral middle turbinates. Dictated by: Dictated on workstation # [id number]
== END ==
LOC: RAD 16:15
PROVIDERS: ATTEND Otolaryngology Otolaryngology/Facial Plastic Surgery
DX: J34.9 Unspecified disorder of nose and nasal sinuses (principal); J34.2 Deviated nasal septum
CPT/HCPCS: 70486

== ENCOUNTER → 2021-06-21 | Outpatient (CLI) | payer OTHER ==
[2021-06-21 12:07] LABS: BILIRUBIN,URINE NEGATIVE (NEGATIVE); CLARITY,URINE CLEAR; COLOR,URINE YELLOW; GLUCOSE, URINE (UA) NEGATIVE (NEGATIVE); KETONES,URINE NEGATIVE (NEGATIVE); LEUKOCYTE ESTERASE ,URINE NEGATIVE (NEGATIVE); NITRITE,URINE NEGATIVE (NEGATIVE); PROTEIN,URINE NEGATIVE (NEGATIVE)
[2021-06-21 12:20] LABS: BACTERIA,URINE NEGATIVE /HPF
== END ==
LOC: LAB 11:43
DX: R35.0 Frequency of micturition (principal); R82.998 Other abnormal findings in urine
CPT/HCPCS: 81000

== ENCOUNTER → 2021-07-03 | Outpatient (CLI) | payer OTHER ==
--- NOTE | 2021-07-03 16:37 | Diagnostic Imaging Report ---
INDICATION: Left knee pain. FINDINGS: Four views of the left knee show no fracture, dislocation, or other abnormality. IMPRESSION: Normal left knee. Dictated by: Dictated on workstation # [id number]
== END ==
LOC: ORTHO 15:16
PROVIDERS: ATTEND Orthopaedic Surgery
DX: M25.562 Pain in left knee (principal)
CPT/HCPCS: 73564; G0463; 99202

== ENCOUNTER → 2021-08-14 | Outpatient (CLI) | payer OTHER ==
[~2021-08-14] MED LIST changes: +DICY20TA PO; -DICY20TA10 PO; -LISI-729 PO; +LISI5TAB20 PO
--- NOTE | 2021-08-14 12:48 | Diagnostic Imaging Report ---
INDICATION: Routine screening. Comparison is made with prior mammogram from 08/09/2020 and 09/13/2017. 2-D and 3-D bilateral screening mammography was performed with CAD. Scattered fibroglandular densities are identified bilaterally. Intraparenchymal lymph node in the upper outer right breast is again noted and appears stable. No new mass or malignant-appearing microcalcifications are seen. Axillae are unremarkable. IMPRESSION: No mammographic features suspicious for malignancy are identified. BI-RADS Category 2 ACR BI-RADS Category 2: Benign findings. Result letter will be mailed to the patient. Note: At least 10% of breast cancer is not imaged by mammography. Dictated by: Dictated on workstation # [id number]
== END ==
LOC: RAD 07:30
PROVIDERS: ATTEND Obstetrics & Gynecology
DX: Z12.31 Encounter for screening mammogram for malignant neoplasm of breast (principal)
CPT/HCPCS: 77063; 77067

== ENCOUNTER → 2021-12-21 | Outpatient (CLI) | payer OTHER ==
[~2021-12-21] MED LIST changes: +HOLD METFORMIN - RECEIVED CONTRAST 20 ML VIAL IV SCH; +IOHEXOL 350 MG/ML 100 ML (OMNIPAQUE 350) VIAL IV ONE; +NS 100 ML (IVPB) BAG IV ONE
[2021-12-21 11:55] LABS: CREATININE SERUM 0.8 MG/DL (0.60-1.30)
--- NOTE | 2021-12-21 12:46 | Diagnostic Imaging Report ---
PROCEDURE: CT abdomen and pelvis with contrast. TECHNIQUE: Multiple contiguous axial images were obtained through the abdomen and pelvis after administration of intravenous contrast. Auto Exposure Controls were utilized during the CT exam to meet ALARA standards for radiation dose reduction. All CT scans use one or more of the following dose optimizing techniques: automated exposure control, MA and/or KvP adjustment based on patient size and exam type or iterative reconstruction. INDICATION: Severe abdominal pain for 3 days. Comparison is made with prior CT from 03/01/2021. FINDINGS: The lung bases are clear. There are several tiny low-attenuation lesions within the liver suggestive of cysts. Hyperenhancing lesion in the right lobe of the liver posteriorly is noted may represent a hemangioma. Gallbladder is surgically absent. The pancreas and spleen are unremarkable. No adrenal mass is identified. Kidneys are unremarkable. Aorta is nonaneurysmal. The stomach does show some generalized wall thickening which can be seen with gastritis. The small and large bowel loops are normal caliber. There is no obstruction. There is no free fluid or fluid collection. Appendix appears unremarkable. No inflammatory changes are seen. The bladder is unremarkable. Uterus appears to be surgically absent. IMPRESSION: 1. Probable hepatic cysts and cavernous hemangioma. 2. Nonspecific wall thickening of the stomach, perhaps on the basis of gastritis. 3. Otherwise unremarkable CT of the abdomen and pelvis. Dictated by: Dictated on workstation # [id number]
== END ==
LOC: RAD 12:00
PROVIDERS: ATTEND Surgery
DX: R10.84 Generalized abdominal pain (principal)
CPT/HCPCS: 36415; 74177; 82565; 84520

== ENCOUNTER 2022-02-11 05:32 | Outpatient (CLI) | payer OTHER ==
[~2022-02-11] VITALS: Ht 167.6 cm; Wt 72.1 kg
[~2022-02-11 05:32] MED LIST changes: -HOLD METFORMIN - RECEIVED CONTRAST 20 ML VIAL IV SCH; -IOHEXOL 350 MG/ML 100 ML (OMNIPAQUE 350) VIAL IV ONE; -NS 100 ML (IVPB) BAG IV ONE
[2022-02-12] MEDS ORDERED: CETI10TA49 PO (16:13)
== END 2022-02-12 16:30 | disposition home or self-care (01) ==
LOC: PREOP 05:32
PROVIDERS: ATTEND Podiatrist Foot & Ankle Surgery
DX: Z01.818 Encounter for other preprocedural examination (principal)

== ENCOUNTER 2022-02-18 05:55 | Day surgery (SDC) | payer OTHER ==
[2022-02-18] VITALS (11 sets, daily range): BP systolic 126–145; BP diastolic 71–99
[~2022-02-18] VITALS: Ht 167.4 cm; Wt 72.1 kg
[~2022-02-18 05:55] MED LIST changes: +CETI10TA49 PO
[2022-02-18] MEDS ORDERED: ceFAZolin INJECTION 1,000 MG VIAL IV ONE (06:30)
[2022-02-18] MEDS: LACTATED RINGERS 1,000 ML IV PRN ×2 (06:30→08:08)
[2022-02-18] MEDS ORDERED: LIDOCAINE 1% INJ 20 ML VIAL ONE (07:01)
[2022-02-18] MEDS ORDERED: BUPIVACAINE 0.5% 30 ML (SENSORCAINE) VIAL ONE (07:01)
[2022-02-18] MEDS ORDERED: ONDANSETRON 4 MG/2 ML (SDV) Z0FRAN ONE (07:23)
[2022-02-18] MEDS ORDERED: proPOfol 200 MG/20 ML (DIPRIVAN) VIAL IV ONE (07:23)
[2022-02-18] MEDS ORDERED: LIDOCAINE PF 2% 5 ML (XYLOCAINE) VIAL ONE (07:23)
[2022-02-18] MEDS ORDERED: fentaNYL INJ 100 MCG/2 ML AMP ONE (07:24)
[2022-02-18] MEDS ORDERED: MIDAZOLAM 2 MG/2 ML (VERSED) VIAL ONE (07:24)
--- NOTE | 2022-02-18 07:40 | Progress Note-Pre Operative ---
Pre-Operative Progress Note H&P Reviewed The H&P was reviewed, patient examined and no changes noted. Date Seen by Provider: Feb 18, 2022 Time Seen by Provider: 07:40 Date H&P Reviewed: Feb 18, 2022 Time H&P Reviewed: 07:40 Pre-Operative Diagnosis: Hallux Valgus Right BRENDAN ENGLISH DPM Feb 18, 2022 07:40
--- NOTE | 2022-02-18 09:02 | Progress Note-Post Operative ---
Post-Operative Progess Note Surgeon (s)/Wrapper Dipper (s) Surgeon BRENDAN ENGLISH DPM Wrapper Dipper: none Pre-Operative Diagnosis Hallux Valgus Right Post-Operative Diagnosis Same, plus DJD of the right 1st metatarsal phalangeal joint Procedure & Operative Findings Date of Procedure 02/18/22 Procedure Performed/Findings Yeison-Cory Bunionectomy, right foot Anesthesia Type General Estimated Blood Loss Estimated blood loss (mL): Minimal Specimens/Packing Specimens Removed none BRENDAN ENGLISH DPM Feb 18, 2022 09:02
[2022-02-18] MEDS ORDERED: CLIN150C20 PO (09:06)
[2022-02-18] MEDS ORDERED: LACTATED RINGERS 1,000 ML IV SCH (09:15)
[2022-02-18] MEDS ORDERED: morphine INJ 10 MG/ML 1ML (SYR OR VIAL) IVP ONE (09:15)
[2022-02-18] MEDS ORDERED: ONDANSETRON 4 MG/2 ML (SDV) Z0FRAN IVP PRN (09:15)
[2022-02-18] MEDS ORDERED: HYDROcodone/APAP 5 MG/325 MG (LORTAB) TAB PO PRN (09:15)
--- NOTE | 2022-02-18 09:36 | Diagnostic Imaging Report ---
Indication: Bunionectomy. 2 views of the right foot were obtained. Findings: There are postsurgical changes of bunionectomy. Alignment is grossly normal. Some minimal subcutaneous gas in soft tissues presumably postoperative. No other acute fracture or dislocation. Impression: Postsurgical changes of a right bunionectomy as described. Dictated by: Dictated on workstation # [id number]
[2022-02-18] MEDS ORDERED: SEVOFLURANE (ULTANE) 15 ML INHAL SOLN ONE (10:31)
--- NOTE | 2022-02-18 10:41 | Anesthesia-General Post-Op ---
General Patient Condition Mental Status/LOC: Same as Preop Cardiovascular: Satisfactory Nausea/Vomiting: Absent Respiratory: Satisfactory Pain: Controlled Complications: Absent Post Op Complications Complications None Follow Up Care/Instructions Patient Instructions None needed. Anesthesia/Patient Condition Patient Condition Patient is doing well, no complaints, stable vital signs, no apparent adverse anesthesia problems. No complications reported per nursing. BERTA GORE DO Feb 18, 2022 10:41
[2022-02-18] MEDS ORDERED: ACHD5005 PO (11:10)
--- NOTE | 2022-02-18 13:56 | OPERATIVE REPORT ---
DATE OF SERVICE: 02/18/2022 SURGEON: Brendan English DPM. PREOPERATIVE DIAGNOSIS: Hallux abductovalgus metatarsal primus varus, right foot. POSTOPERATIVE DIAGNOSES: 1. Hallux abductovalgus metatarsal primus varus, right foot. 2. Degenerative joint disease, right first metatarsal head. PROCEDURE: Modified Yeison-Cory bunionectomy, right. WOUND CLASS: Clean. ANESTHESIA: General. HEMOSTASIS: Pneumatic thigh tourniquet at 250 mmHg. INDICATIONS: This 51-year-old female presents complaining of painful bunion of the right foot. Conservative therapy is met with unsatisfactory results and the patient is agreeable to surgical intervention after risks and complications were discussed at length. No guarantees were extended to the patient and she is willing to proceed. DESCRIPTION OF PROCEDURE: The patient was brought back to the operating table, placed in secure supine position. General anesthetic was then induced. Appropriate timeout was performed. The right foot was then prepped and draped in normal sterile manner. The right foot was then elevated, allowed to exsanguinate after which the tourniquet was inflated to 250 mmHg. Attention was then directed to the dorsal aspect of the right first metatarsophalangeal joint area where a 6 cm longitudinal linear incision was created. The incision was deepened in the same plane with great care to identify and retract all vital neurovascular structures. Only necessary blood vessels were cauterized as encountered. The incision was deepened down to the capsular tissue where a longitudinal capsulotomy was performed. The capsular tissue was reflected medial laterally exposing the hypertrophic head of the first metatarsal. The medial and dorsal eminences were reduced with a power sagittal saw and further contoured and smoothed with a power bur. Next, blunt dissection was carried out into the first intermetatarsal space where a lateral release was performed. The conjoint tendon of the adductor hallucis was released as well as a lateral capsulorrhaphy and release of the fibular sesamoidal ligament. Attention was redirected to the medial aspect of the right first metatarsal head where a Chevron-type osteotomy was performed allowing the capital fragment to translocate laterally. It was fixated in its corrected position with a 0.062 threaded K-wire driven from dorsal proximal to plantar distal across the osteotomy with great care not to penetrate the articular cartilage. The K-wire was cut flush with the dorsal aspect of the first metatarsal. The head of the first metatarsal was further contoured and smoothed with a power sagittal saw and power bur. Inspection of the first metatarsal head demonstrated full thickness degeneration of the articular cartilage to the medial and lateral sesamoidal grooves area. These areas were fenestrated utilizing a wire passing drill of 1.5 mm. The wound was flushed with copious amounts of normal saline. Excellent range of motion was appreciated at the first metatarsophalangeal joint at this time. Attention was then directed to the base of the proximal phalanx of the right hallux where subperiosteal dissection was carried out after which a wedge of bone was resected with the base medial and lateral cortices of the phalanx held intact. Once the wedge of bone was resected, the osteotomy was closed correcting some of the lateral deviation at the distal portion of the digit. Two commuter pilot holes were created at the dorsal medial aspect of the osteotomy through which a 28-gauge monofilament wire was passed and was allowed to secure the osteotomy in a closed position. Excellent bony apposition and fixation was appreciated at this time. The wound was flushed with copious amounts of normal saline. Closure was then performed in layers. Deep closure was performed with 3-0 Vicryl, superficial with 4-0 Vicryl, skin closure with 4-0 Prolene in a horizontal mattress type stitch. Postoperative injection consisted of 10 mg of dexamethasone into the first intermetatarsal space and into the first metatarsophalangeal joint. A 16 mL of 0.5% Marcaine was injected in a Ibarra block. Postoperative dressings were Betadine-soaked Adaptic, sterile 4 x 4, sterile Kerlix, all secured with a Coban wrap. The patient tolerated the anesthesia and procedure well, was transported from the operating room to the recovery area with vital signs stable and vascular status intact to all digits of the right foot. The patient is to follow up in my office in 10 days' period of time. Job ID: [id number] DocumentID: [id number] Dictated Date: 02/18/2022 09:12:34 Manager Learning Date: 02/18/2022 13:55:44 Dictated By: BRENDAN ENGLISH DPM
== END 2022-02-18 11:45 | disposition home or self-care (01) ==
LOC: SDC 05:55
PROVIDERS: ATTEND Podiatrist Foot & Ankle Surgery
DX: M20.11 Hallux valgus (acquired), right foot (principal); M20.31 Hallux varus (acquired), right foot; M19.072 Primary osteoarthritis, left ankle and foot; I10 Essential (primary) hypertension; G43.909 Migraine, unspecified, not intractable, without status migrainosus
CPT/HCPCS: 28296; 73620; 87081; C1713

== ENCOUNTER → 2022-05-24 | Outpatient (RCR) | payer OTHER ==
[~2022-05-24] MED LIST changes: +CLIN150C20 PO
== END | disposition home or self-care (01) ==
PROVIDERS: ATTEND Podiatrist Foot & Ankle Surgery
DX: M20.21 Hallux rigidus, right foot (principal); Z98.890 Other specified postprocedural states

== ENCOUNTER 2022-06-19 16:00 | Outpatient (RCR) | payer OTHER | END 2022-06-24 | disposition home or self-care (01) | PROVIDERS: ATTEND Podiatrist Foot & Ankle Surgery | DX: M20.21 Hallux rigidus, right foot (principal); I10 Essential (primary) hypertension; Z98.890 Other specified postprocedural states ==

== ENCOUNTER → 2022-07-04 | Outpatient (CLI) | payer OTHER ==
--- NOTE | 2022-07-04 18:23 | Diagnostic Imaging Report ---
PROCEDURE: MRI right lower extremity without contrast. TECHNIQUE: Multiplanar, multisequence non contrast-enhanced MRI of the right lower extremity was accomplished. INDICATION: Pain in the plantar right foot. History of 1st toe bunionectomy. COMPARISON: Radiographs from 02/18/2022. FINDINGS: There is a nondisplaced stress fracture of the distal right 3rd metatarsal shaft. There is marked surrounding bone marrow and deep soft tissue edema. Bone marrow edema extends from the base up to the head. There is a small fluid collection plantar to the 2nd toe proximal interphalangeal joint which measures about 1.0 x 0.6 x 0.4 cm in size. This appears closely associated with the flexor tendon and may be a ganglion cyst. The flexor and extensor tendons appear intact. No masses or other fluid collections are seen. There is no significant intermetatarsal bursitis. The Lisfranc ligament is intact. There is mild generalized muscular atrophy. IMPRESSION: 1. Nondisplaced stress fracture of the distal right 3rd metatarsal, with marked surrounding edema. 2. Small fluid collection plantar to the 2nd toe, possibly a ganglion cyst. Dictated by: Dictated on workstation # [id number]
== END ==
LOC: RAD 14:51
PROVIDERS: ATTEND Podiatrist Foot & Ankle Surgery
DX: M84.374A Stress fracture, right foot, initial encounter for fracture (principal)

== ENCOUNTER 2022-07-15 15:30 | Outpatient (RCR) | payer OTHER | END 2022-07-24 | disposition home or self-care (01) | PROVIDERS: ATTEND Podiatrist Foot & Ankle Surgery | DX: M20.21 Hallux rigidus, right foot (principal); I10 Essential (primary) hypertension; Z98.890 Other specified postprocedural states ==

== ENCOUNTER 2022-08-13 16:11 | Outpatient (RCR) | payer OTHER | END 2022-08-24 | disposition home or self-care (01) | PROVIDERS: ATTEND Podiatrist Foot & Ankle Surgery | DX: M20.21 Hallux rigidus, right foot (principal); I10 Essential (primary) hypertension; Z98.890 Other specified postprocedural states ==

== ENCOUNTER → 2022-08-16 | Outpatient (CLI) | payer OTHER ==
--- NOTE | 2022-08-16 10:15 | Diagnostic Imaging Report ---
INDICATION: Routine screening. COMPARISON is made with prior mammograms from 08/14/2021 and 08/09/2020. 2-D and 3-D bilateral screening mammography was performed with CAD. Scattered fibroglandular densities are identified bilaterally. Intraparenchymal lymph node in the upper outer right breast is stable. No spiculated mass or malignant-appearing microcalcifications are seen. Axillae are unremarkable. IMPRESSION: BI-RADS Category 2 No mammographic features suspicious for malignancy are identified. ACR BI-RADS Category 2: Benign findings. Result letter will be mailed to the patient. Note: At least 10% of breast cancer is not imaged by mammography. Dictated by: Dictated on workstation # [id number]
== END ==
LOC: RAD 07:21
PROVIDERS: ATTEND Obstetrics & Gynecology
DX: Z12.31 Encounter for screening mammogram for malignant neoplasm of breast (principal)
CPT/HCPCS: 77063; 77067

== ENCOUNTER 2022-08-30 15:52 | Outpatient (RCR) | payer OTHER | END 2022-08-30 16:34 | disposition home or self-care (01) | PROVIDERS: ATTEND Podiatrist Foot & Ankle Surgery | DX: M20.21 Hallux rigidus, right foot (principal); I10 Essential (primary) hypertension; Z98.890 Other specified postprocedural states ==